=== PATIENT | male | born 1975 | race Caucasian/White ===

== ENCOUNTER → 2018-01-15 | Outpatient (CLI) | payer BC ==
--- NOTE | 2018-01-15 08:03 | US ---
EXAMINATION TYPE: US abdomen complete DATE OF EXAM: 01/15/2018 COMPARISON: NONE CLINICAL HISTORY: R94.5 abnormal liver function. Abdominal pain, nausea, elevated liver enzymes EXAM MEASUREMENTS: Liver Length: 14.2 cm Gallbladder Wall: 0.4 cm CBD: 0.3 cm Spleen: 10.1 cm Right Kidney: 12.2 x 4.5 x 5.2 cm Left Kidney: 13.3 x 5.3 x 5.2 cm technical limitations due to large amount of overlying bowel content Pancreas: Obscured by bowel gas Liver: appears wnl Gallbladder: no evidence of stones, GB wall appears thickened Evidence for sonographic Hernandez's sign: No CBD: limited evaluation Spleen: wnl Right Kidney: no evidence of hydronephrosis Left Kidney: enlarged, no evidence of hydronephrosis Upper IVC: wnl Abd Aorta: visualized portions appear wnl The liver is homogenous. The intrahepatic portion of the IVC and proximal abdominal aorta are within normal limits. There is no evidence of cholelithiasis. Common bile duct is unremarkable. The visu alized portions of the pancreas are homogenous. The spleen is unremarkable. Kidneys are symmetric a nd free of hydronephrosis. No renal lesions are seen. IMPRESSION: Exam is somewhat limited. Gallbladder wall thickening may be due to lack of distention.
== END | disposition home or self-care (01) ==
LOC: RADUSWWP 06:56
PROVIDERS: ATTEND Family Medicine
DX: K82.8 Other specified diseases of gallbladder (principal)
CPT/HCPCS: 76700

== ENCOUNTER 2023-12-21 09:56 | Inpatient (IN) | payer OTHER ==
--- NOTE | 2023-12-21 11:23 | ED ---
General Adult HPI - General Chief complaint: Skin/Abscess/Foreign Body Stated complaint: Sore on bottom Time Seen by Provider: 12/21/23 10:37 Source: patient, RN notes reviewed Mode of arrival: ambulatory Limitations: no limitations - History of Present Illness Initial comments: Patient is a 48-year-old male present to the emergency department with concerns for sore on his bottom. Patient does inject hGH in this area. Patient states over the past several days it has become more painful and swollen. Patient has had similar symptoms previously that have helped with antibiotics. Patient has been on unknown antibiotic for a couple of days at home. Patient also feels thirsty and has some mild abdominal discomfort. - Related Data Home Medications Medication Instructions Recorded Confirmed Albuterol Sulfate [Ventolin HFA] 1 - 2 puff INHALATION RT-Q4H PRN 12/21/23 12/21/23 Escitalopram [Lexapro] 20 mg PO DAILY 12/21/23 12/21/23 Fluticasone Propion/Salmeterol 1 puff INHALATION RT-BID 12/21/23 12/21/23 [Wixela 500-50 Inhub] Multivitamins, Thera [Multivitamin 1 tab PO DAILY 12/21/23 12/21/23 (formulary)] Rosuvastatin [Crestor] 10 mg PO DAILY 12/21/23 12/21/23 Sulfamethox-Tmp 800-160Mg [Bactrim 1 tab PO BID 12/21/23 12/21/23 DS 800-160 mg] Testosterone Cypionate 200 mg IM Q21D 12/21/23 12/21/23 [Depo-Testosterone] lisinopriL [Prinivil] 20 mg PO DAILY 12/21/23 12/21/23 Allergies Allergy/AdvReac Type Severity Reaction Status Date / Time No Known Allergies Allergy Verified 12/21/23 12:59 Review of Systems ROS Statement: Those systems with pertinent positive or pertinent negative responses have been documented in the HPI. ROS Other: All systems not noted in ROS Statement are negative. Constitutional: Denies: fever Eyes: Denies: eye pain ENT: Denies: ear pain Respiratory: Denies: dyspnea Cardiovascular: Denies: chest pain Endocrine: Denies: fatigue Gastrointestinal: Reports: as per HPI. Denies: vomiting Genitourinary: Denies: dysuria Skin: Reports: as per HPI Past Medical History Past Medical History: Hyperlipidemia, Hypertension Past Surgical History: No Surgical Hx Reported Smoking Status: Never smoker Past Alcohol Use History: None Reported Past Drug Use History: None Reported General Exam Limitations: no limitations General appearance: alert, in no apparent distress Head exam: Present: normocephalic Eye exam: Present: normal appearance ENT exam: Present: normal oropharynx, mucous membranes moist Neck exam: Present: normal inspection Respiratory exam: Present: normal lung sounds bilaterally Cardiovascular Exam: Present: regular rate, normal rhythm GI/Abdominal exam: Present: soft, normal bowel sounds. Absent: distended, tenderness, guarding, rebound, rigid, pulsatile mass Extremities exam: Present: normal inspection Back exam: Present: other (Left lateral buttocks with large area of swelling, approximately 10 x 12 cm) Neurological exam: Present: alert Psychiatric exam: Present: normal affect, normal mood Skin exam: Present: normal color Course Vital Signs 12/21/23 10:12 Temperature 98.3 F Pulse Rate 110 H Respiratory 20 Rate Blood Pressure 155/105 O2 Sat by Pulse 96 Oximetry Procedures - Incision & Drainage Consent Obtained: verbal consent Indication: Abscess Site: buttock Size (cm): 12 Anesthetic Used: lidocaine 1% Amount (mLs): 5 I&D Cleaning Method: Betadine Scalpel Used: #11 Ultrasound used: No I&D Drainage Obtained: Other (Unable to obtain pus. No complications) Medical Decision Making - Medical Decision Making Was pt. sent in by a medical professional or institution (Dr. PA, [employer]INO [employer] MANAGER, urgent care, hospital, or long term...) When possible be specific @ -Patient was sent in by his primary care physician Did you speak to anyone other than the patient for history (EMS, parent, family, police, friend...)? What history was obtained from this source @ -No Did you review nursing and triage notes (agree or disagree)? Why? @ -I reviewed and agree with nursing and triage notes Were old charts reviewed (outside hosp., previous admission, EMS record, old EKG, old radiological studies, urgent care reports/EKG's, long term records)? Report findings @ -No old charts were reviewed Differential Diagnosis (chest pain, altered mental status, abdominal pain women, abdominal pain men, vaginal bleeding, weakness, fever, dyspnea, syncope, headache, dizziness, GI bleed, back pain, seizure, CVA, palpatations, mental health, musculoskeletal)? @ -Differential Weakness: Hypoglycemia, shock, sepsis, hyponatremia, anemia, infection, IA, ETOH, adverse medicine reaction, overdose, stroke, this is not meant to be an all-inclusive list. EKG interpreted by me (3pts min.). @ -As above X-rays interpreted by me (1pt min.). @ -None done CT interpreted by me (1pt min.). @ -None done U/S interpreted by me (1pt. min.). @ -None done What testing was considered but not performed or refused? (CT, X-rays, U/S, labs)? Why? @ -None What meds were considered but not given or refused? Why? @ -None Did you discuss the management of the patient with other professionals (professionals i.e. , PA, [employer]INO CAGE MANAGER, lab, RT, psych nurse, social service director, buffer operator, teacher, protocol officer, case advocate)? Give summary @ -Case discussed with Dr. Valdes who will admit covering Dr. Buckley Was smoking cessation discussed for >3mins.? @ -No Was critical care preformed (if so, how long)? @ -31 minutes critical care time Were there social determinants of health that impacted care today? How? (Homelessness, low income, unemployed, alcoholism, drug addiction, transportation, low edu. Level, literacy, decrease access to med. care, prison, rehab)? @ -No Was there de-escalation of care discussed even if they declined (Discuss DNR or withdrawal of care, Hospice)? DNR status @ -No What co-morbidities impacted this encounter? (DM, HTN, Smoking, COPD, CAD, Cancer, CVA, ARF, Chemo, Hep., AIDS, mental health diagnosis, sleep apnea, morbid obesity)? @ -None Was patient admitted / discharged? Hospital course, mention meds given and route, prescriptions, significant lab abnormalities, going to OR and other pertinent info. @ -Patient reevaluated. Patient will be admitted. 3 L of fluid provided. Th ere is concern of possible sepsis diagnosed at 1235. Blood culture and lactic acid and IV antibiotics all ordered. Patient will be admitted. Patient will have repeat labs. Admission orders written. Undiagnosed new problem with uncertain prognosis? @ -No Drug Therapy requiring intensive monitoring for toxicity (Heparin, Nitro, Insulin, Cardizem)? @ -No Were any procedures done? @ -See above Diagnosis/symptom? @ -Buttocks abscess, sepsis, new onset diabetes, hyponatremia, hyperkalemia, renal insufficiency Acute, or Chronic, or Acute on Chronic? @ -Acute, acute, acute, acute, acute, acute, acute Uncomplicated (without systemic symptoms) or Complicated (systemic symptoms)? @ -Default Side effects of treatment? @ -No Exacerbation, Progression, or Severe Exacerbation? @ -No Poses a threat to life or bodily function? How? (Chest pain, USA, IA, pneumonia, PE, COPD, DKA, ARF, appy, cholecystitis, CVA, Diverticulitis, Homicidal, Suicidal, threat to staff... and all critical care pts) @ -Threat for acidemia - Lab Data Result diagrams: 12/21/23 11:29 12/21/23 11:29 Lab Results 12/21/23 12/21/23 12/21/23 Range/Units 11:29 11:29 11:29 WBC 25.7 H (3.8-10.6) k/uL RBC 4.80 (4.30-5.90) m/uL Hgb 14.8 (13.0-17.5) gm/dL Hct 46.8 (39.0-53.0) % MCV 97.6 (80.0-100.0) fL MCH 31.0 (25.0-35.0) pg MCHC 31.7 (31.0-37.0) g/dL RDW 13.5 (11.5-15.5) % Plt Count 434 (150-450) k/uL MPV 8.8 Neutrophils % 90 % Lymphocytes % 4 % Monocytes % 4 % Eosinophils % 1 % Basophils % 0 % Neutrophils # 23.1 H (1.3-7.7) k/uL Lymphocytes # 1.1 (1.0-4.8) k/uL Monocytes # 1.1 H (0-1.0) k/uL Eosinophils # 0.2 (0-0.7) k/uL Basophils # 0.1 (0-0.2) k/uL Sodium 126 L (137-145) mmol/L Potassium 6.3 H* (3.5-5.1) mmol/L Chloride 89 L (98-107) mmol/L Carbon Dioxide 28 (22-30) mmol/L Anion Gap 9 mmol/L BUN 26 H (9-20) mg/dL Creatinine 1.56 H (0.66-1.25) mg/dL Est GFR (CKD-EPI)AfAm 61 (>60 ml/min/1.73 sqM) Est GFR (CKD-EPI)NonAf 53 (>60 ml/min/1.73 sqM) Glucose 458 H (74-99) mg/dL Plasma Lactic Acid David 3.1 H* (0.7-2.0) mmol/L Calcium 11.3 H (8.4-10.2) mg/dL Total Bilirubin 0.4 (0.2-1.3) mg/dL AST 35 (17-59) U/L ALT 43 (4-49) U/L Alkaline Phosphatase 84 (38-126) U/L Total Protein 6.7 (6.3-8.2) g/dL Albumin 4.1 (3.5-5.0) g/dL Disposition Clinical Impression: Abscess, Diabetes mellitus, new onset Disposition: ADMITTED IP TO THIS [facility] Condition: Serious Is patient prescribed a controlled substance at d/c from ED?: No Time of Disposition: 12:49
[2023-12-21] MEDS: FAMOTIDINE 20 MG/2 ML VIAL IV STA (11:41)
[2023-12-21] MEDS: SODIUM CHLORIDE 0.9% 2,000 ML IV ONE (11:46)
[2023-12-21] MEDS: SODIUM CHLORIDE 0.9% 500 ML 500 ML IV SCH (11:51)
[2023-12-21 11:53] LABS: Basophils # (A) 0.1 k/uL (0-0.2); Basophils % (A) 0 %; Eosinophils # (A) 0.2 k/uL (0-0.7); Eosinophils % (A) 1 %; HCT 46.8 % (39.0-53.0); HGB 14.8 gm/dL (13.0-17.5); Lymphocytes # (A) 1.1 k/uL (1.0-4.8); Lymphocytes % (A) 4 %; MCHC 31.7 g/dL (31.0-37.0); MCV 97.6 fL (80.0-100.0); Mean Platelet Volume 8.8; Monocytes # (A) 1.1 k/uL (0-1.0); Monocytes % (A) 4 %; Neutrophils # (A) 23.1 k/uL (1.3-7.7); Neutrophils % (A) 90 %; Platelet Count 434 k/uL (150-450); RDW 13.5 % (11.5-15.5); WBC 25.7 k/uL (3.8-10.6)
[2023-12-21 12:06] LABS: ALT 43 U/L (4-49); AST 35 U/L (17-59); African American GFR (CKD) 61 (>60 ml/min/1.73 sqM); Albumin 4.1 g/dL (3.5-5.0); Alkaline Phosphatase 84 U/L (38-126); Anion Gap 9 mmol/L; Blood Urea Nitrogen 26 mg/dL (9-20); Calcium 11.3 mg/dL (8.4-10.2); Carbon Dioxide 28 mmol/L (22-30); Chloride 89 mmol/L (98-107); Glucose 458 mg/dL (74-99); Non-African American GFR(CKD) 53 (>60 ml/min/1.73 sqM); Sodium 126 mmol/L (137-145); Total Bilirubin 0.4 mg/dL (0.2-1.3); Total Protein 6.7 g/dL (6.3-8.2)
[2023-12-21 12:12] LABS: Potassium 6.3 mmol/L (3.5-5.1)
[2023-12-21] MEDS ORDERED: NALOXONE 0.4 MG/ML 1 ML VIAL IV PRN (12:50)
[2023-12-21] MEDS: SODIUM CHLORIDE 0.9% 1,000 ML IV STA (12:56)
[2023-12-21] MEDS: LIDOCAINE 1% INJ 10MG/ML (20 ML MDV) SQ ONE (13:40)
[2023-12-21] MEDS: CLINDAMYCIN 600 MG in DEXTROSE 5% IN WATER 50 ML IVPB ONE (14:14)
[2023-12-21] MEDS: SODIUM CHLORIDE 0.9% 1,000 ML IV SCH (14:14)
[2023-12-21 14:47] LABS: African American GFR (CKD) 74 (>60 ml/min/1.73 sqM); Anion Gap 6 mmol/L; Blood Urea Nitrogen 23 mg/dL (9-20); Carbon Dioxide 27 mmol/L (22-30); Chloride 97 mmol/L (98-107); Glucose 323 mg/dL (74-99); Non-African American GFR(CKD) 64 (>60 ml/min/1.73 sqM); Potassium 5.8 mmol/L (3.5-5.1); Sodium 130 mmol/L (137-145)
[2023-12-21] MEDS: HYDROmorphone 0.5 MG/0.5 ML SYRINGE IVP PRN (15:21)
--- NOTE | 2023-12-21 15:42 | US ---
EXAMINATION TYPE: US extremity nonvasc mass LT DATE OF EXAM: 12/21/2023 COMPARISON: NONE CLINICAL INDICATION: Male, 48 years old with history of Gluteal abscess L; Abscess left gluteal gave himself a HCG shot on Saturday. TECHNIQUE: FINDINGS: Complex area seen approximately 6.1 cm. IMPRESSION: Complex mass likely reflects hematoma. No evidence for drainable collection at this time .
[2023-12-21 17:18] LABS: Glucose,Whole Blood 280 mg/dL (70-110)
[2023-12-21] MEDS ORDERED: DEXTROSE 50% SYRINGE 50 ML IVP PRN ×2 (17:36)
[2023-12-21] MEDS: IBUPROFEN 400 MG TAB PO PRN (18:00)
[2023-12-21] MEDS: INSULIN ASPART (NovoLOG) 100 UNIT/ML VIAL SQ SCH (18:01)
[2023-12-21] MEDS: SODIUM ZIRCONIUM CYCLOSILICATE 10 GM PACKET PO ONE (18:38)
[2023-12-21 20:35] LABS: Glucose,Whole Blood 334 mg/dL (70-110)
[2023-12-21] MEDS: ACETAMINOPHEN TAB 325 MG TAB PO PRN (20:49)
[2023-12-21] MEDS: CLINDAMYCIN 600 MG in DEXTROSE 5% IN WATER 50 ML IVPB SCH (20:51)
[2023-12-21] MEDS: INSULIN DETEMIR (LEVEMIR) 100 UNIT/ML SYR SQ SCH (20:52)
[2023-12-21] MEDS: INSULIN ASPART (NovoLOG) 100 UNIT/ML VIAL SQ ONE (20:52)
[2023-12-21] MEDS: SYMBICORT 160-4.5 MCG INHALER INHALATION SCH (21:27)
--- NOTE | 2023-12-21 22:42 | P.CON ---
Consult Note - . Consult date: 12/21/23 Assessment/Plan:: Patient is a 48-year-old male present to the emergency department with concerns for sore on his bottom. Patient does inject hGH in this area. Patient states over the past several days it has become more painful and swollen. Patient has had similar symptoms previously that have helped with antibiotics. Patient has been on unknown antibiotic for a couple of days at home. Patient also feels thirsty and has some mild abdominal discomfort. Review of Systems ROS Statement: Those systems with pertinent positive or pertinent negative responses have been documented in the HPI. ROS Other: All systems not noted in ROS Statement are negative. Constitutional: Denies: fever Eyes: Denies: eye pain ENT: Denies: ear pain Respiratory: Denies: dyspnea Cardiovascular: Denies: chest pain Endocrine: Denies: fatigue Gastrointestinal: Reports: as per HPI. Denies: vomiting Genitourinary: Denies: dysuria Skin: Reports: as per HPI Past Medical History Past Medical History: Hyperlipidemia, Hypertension Past Surgical History: No Surgical Hx Reported Smoking Status: Never smoker Past Alcohol Use History: None Reported Past Drug Use History: None Reported General Exam Limitations: no limitations General appearance: alert, in no apparent distress Head exam: Present: normocephalic Eye exam: Present: normal appearance ENT exam: Present: normal oropharynx, mucous membranes moist Neck exam: Present: normal inspection Respiratory exam: Present: normal lung sounds bilaterally Cardiovascular Exam: Present: regular rate, normal rhythm GI/Abdominal exam: Present: soft, normal bowel sounds. Absent: distended, tenderness, guarding, rebound, rigid, pulsatile mass Extremities exam: Present: normal inspection Back exam: Present: other (Left lateral buttocks with large area of swelling, approximately 10 x 12 cm) Neurological exam: Present: alert Psychiatric exam: Present: normal affect, normal mood Skin exam: Present: normal color 48 yo male w/ left lateral buttocks abscess -discussed w/ ED, ED physician will I&D -IV abx -recommend UA to assess for ketones -trend LA -aggressive IV hydration -glucose control Reassess in am
[2023-12-22 06:10] LABS: Glucose,Whole Blood 290 mg/dL (70-110)
[2023-12-22 06:35] LABS: Basophils # (A) 0.1 k/uL (0-0.2); Basophils % (A) 0 %; Eosinophils # (A) 0.1 k/uL (0-0.7); Eosinophils % (A) 0 %; HCT 43.7 % (39.0-53.0); Lymphocytes # (A) 1.2 k/uL (1.0-4.8); Lymphocytes % (A) 6 %; MCH 31.4 pg (25.0-35.0); MCHC 32.1 g/dL (31.0-37.0); Monocytes # (A) 1.1 k/uL (0-1.0); Monocytes % (A) 6 %; Neutrophils # (A) 17.3 k/uL (1.3-7.7); Neutrophils % (A) 87 %; Platelet Count 410 k/uL (150-450); RBC 4.46 m/uL (4.30-5.90); RDW 14.2 % (11.5-15.5); WBC 19.9 k/uL (3.8-10.6)
[2023-12-22 06:58] LABS: ALT 41 U/L (4-49); AST 34 U/L (17-59); African American GFR (CKD) 68 (>60 ml/min/1.73 sqM); Albumin 3.6 g/dL (3.5-5.0); Alkaline Phosphatase 65 U/L (38-126); Anion Gap 8 mmol/L; Blood Urea Nitrogen 25 mg/dL (9-20); Calcium 9.6 mg/dL (8.4-10.2); Carbon Dioxide 27 mmol/L (22-30); Chloride 92 mmol/L (98-107); Glucose 327 mg/dL (74-99); Non-African American GFR(CKD) 59 (>60 ml/min/1.73 sqM); Sodium 127 mmol/L (137-145); Total Bilirubin 0.7 mg/dL (0.2-1.3); Total Protein 6.1 g/dL (6.3-8.2)
[2023-12-22 07:00] LABS: Potassium 6.1 mmol/L (3.5-5.1)
[2023-12-22] MEDS: DEXTROSE 50% SYRINGE 50 ML IVP STA (08:45)
[2023-12-22] MEDS: INSULIN REGULAR 100 UNIT/ML VIAL (IV) IV ONE (08:45)
[2023-12-22] MEDS: CALCIUM GLUCONATE IN NACL 1 GM in SALINE 1 100ML.BAG IVPB ONE (08:45)
[2023-12-22] MEDS: MULTIVITAMINS, THERA 1 EACH TAB PO SCH (09:00)
[2023-12-22] MEDS: ESCITALOPRAM 20 MG TAB PO SCH (09:00)
[2023-12-22] MEDS: lisinopriL 20 MG TAB PO SCH (09:00)
[2023-12-22] MEDS: ATORVASTATIN 20 MG TAB PO SCH (09:00)
[2023-12-22] MEDS: HYDROmorphone 1 MG/ML 1 ML SYRINGE IVP PRN (09:00)
[2023-12-22] MEDS ORDERED: DEXTROSE 50% SYRINGE 50 ML IVP STA (09:50)
[2023-12-22] MEDS ORDERED: INSULIN REGULAR 100 UNIT/ML VIAL (IV) IV ONE (09:50)
[2023-12-22] MEDS: SODIUM ZIRCONIUM CYCLOSILICATE 10 GM PACKET PO SCH (10:29)
[2023-12-22] MEDS: SODIUM BICARB 8.4% 50 ML SYR (1 MEQ/ML) IV STA (10:29)
[2023-12-22] MEDS ORDERED: CALCIUM GLUCONATE IN NACL 1 GM in SALINE 1 100ML.BAG IVPB ONE (10:30)
[2023-12-22 11:36] LABS: Glucose,Whole Blood 292 mg/dL (70-110)
--- NOTE | 2023-12-22 12:01 | US ---
EXAMINATION TYPE: US kidneys/renal and bladder DATE OF EXAM: 12/22/2023 COMPARISON: NONE CLINICAL INDICATION: Male, 48 years old with history of lcare; clare EXAM MEASUREMENTS: Right Kidney: 12.5 x 4.7 x 5.5 cm Left Kidney: 11.3 x 6.1 x 4.8 cm Right Kidney: No hydronephrosis or masses seen Left Kidney: Anechoic area seen mid pole 1.2 x 1.9 x 1.2 cm Bladder: Anechoic Bilateral Jets seen: Yes There is no evidence for hydronephrosis at this point in time. No nephrolithiasis is seen. No anaya s are identified. The urinary bladder is anechoic. Bilateral ureteral jets are seen. IMPRESSION: 1. 2 cm left renal cyst. 2. No renal calcifications or hydronephrosis.
--- NOTE | 2023-12-22 12:13 | P.HPIM ---
History of Present Illness This is a pleasant 48 years old male with past medical history of hypertension, hyperlipidemia Presents because of left buttock pain for about 2 to 3 days duration Patient Use testosterone injection to replace his low level and it looks like he developed pain and swelling in the area of his left hip with small opening and discharge He had ultrasound showing complex cyst of 6.1 cm However there is no leg pain or swelling or tenderness. Walking is fine Patient has been feeling a lot of thirst lately and peeing a lot. Patient has been told before he is prediabetic but is not taking any diabetes medication He is complaining from some headache but is okay now His increased frequency of urination but no burning No chest pain dyspnea or coughing No abdominal pain vomiting or diarrhea No dizziness weakness or numbness He denies smoking alcohol or illicit drugs Review of Systems Review of systems CONSTITUTIONAL: No fever, no malaise, no fatigue. HEENT: No recent visual problems or hearing problems. Denied any sore throat. CARDIOVASCULAR: No orthopnea, PND, no palpitations, no syncope. PULMONARY: No shortness of breath, no cough, no hemoptysis. GASTROINTESTINAL: No diarrhea, no nausea, no vomiting, no abdominal pain. Normoactive bowel sounds. NEUROLOGICAL: No headaches, no weakness, no numbness. HEMATOLOGICAL: Denies any bleeding or petechiae. GENITOURINARY: Denies any burning micturition, frequency, or urgency. MUSCULOSKELETAL/RHEUMATOLOGICAL: Denies any joint pain, swelling, or any muscle pain. -ENDOCRINE: Complains from polyuria or polydipsia. Past Medical History Past Medical History: Hyperlipidemia, Hypertension History of Any Multi-Drug Resistant Organisms: None Reported Past Surgical History: No Surgical Hx Reported Additional Past Anesthesia/Blood Transfusion Reaction / Comment(s): Patient has never received a blood transfusion or anesthesia. Past Psychological History: Anxiety Smoking Status: Never smoker Past Alcohol Use History: None Reported Past Drug Use History: None Reported - Past Family History Father Family Medical History: No Reported History Additional Family Medical History / Comment(s): Grandfather had a heart transplant. Mother Family Medical History: No Reported History Medications and Allergies Home Medications Medication Instructions Recorded Confirmed Type Albuterol Sulfate [Ventolin HFA] 1 - 2 puff INHALATION RT-Q4H PRN 12/21/23 12/21/23 History Escitalopram [Lexapro] 20 mg PO DAILY 12/21/23 12/21/23 History Fluticasone Propion/Salmeterol 1 puff INHALATION RT-BID 12/21/23 12/21/23 History [Wixela 500-50 Inhub] Multivitamins, Thera [Multivitamin 1 tab PO DAILY 12/21/23 12/21/23 History (formulary)] Rosuvastatin [Crestor] 10 mg PO DAILY 12/21/23 12/21/23 History Sulfamethox-Tmp 800-160Mg [Bactrim 1 tab PO BID 12/21/23 12/21/23 History DS 800-160 mg] Testosterone Cypionate 200 mg IM Q21D 12/21/23 12/21/23 History [Depo-Testosterone] lisinopriL [Prinivil] 20 mg PO DAILY 12/21/23 12/21/23 History Allergies Allergy/AdvReac Type Severity Reaction Status Date / Time No Known Allergies Allergy Verified 12/21/23 12:59 Physical Exam Vitals: Vital Signs Temp Pulse Pulse Resp BP BP Pulse Ox 12/22/23 03:10 97 16 119/63 98 12/21/23 23:10 103 H 16 134/60 97 12/21/23 20:45 98.3 F 105 H 16 165/93 96 12/21/23 18:44 111 H 12/21/23 18:15 98.1 F 111 H 16 171/92 96 12/21/23 17:55 96 18 163/97 97 12/21/23 10:12 98.3 F 110 H 20 155/105 96 Intake and Output 12/21/23 12/22/23 12/22/23 22:59 06:59 14:59 Intake Total 360 Balance 360 Intake: Oral 360 Other: Voiding Method Toilet Toilet Urinal Urinal Weight 92.986 kg 93 kg GENERAL: The patient is alert and oriented x3, not in any acute distress. Well developed, well nourished. HEENT: Pupils are round and equally reacting to light. EOMI. No scleral icterus. No conjunctival pallor. Normocephalic, atraumatic. No pharyngeal erythema. No thyromegaly. CARDIOVASCULAR: S1 and S2 present. No murmurs, rubs, or gallops. PULMONARY: Chest is clear to auscultation, no wheezing , no crackles. ABDOMEN: Soft, nontender, nondistended, normoactive bowel sounds. No palpable organomegaly. MUSCULOSKELETAL: No joint swelling or deformity. EXTREMITIES: No cyanosis, clubbing, or pedal edema. NEUROLOGICAL: Gross neurological examination did not reveal any focal deficits. SKIN: No rashes. no petechiae. Results CBC & Chem 7: 12/22/23 06:05 12/22/23 06:05 Labs: Abnormal Lab Results - Last 24 Hours (Table) 12/21/23 12/21/23 12/21/23 Range/Units 11:29 11:29 11:29 WBC 25.7 H (3.8-10.6) k/uL Neutrophils # 23.1 H (1.3-7.7) k/uL Monocytes # 1.1 H (0-1.0) k/uL Sodium 126 L (137-145) mmol/L Potassium 6.3 H* (3.5-5.1) mmol/L Chloride 89 L (98-107) mmol/L BUN 26 H (9-20) mg/dL Creatinine 1.56 H (0.66-1.25) mg/dL Glucose 458 H (74-99) mg/dL POC Glucose (mg/dL) (70-110) mg/dL Hemoglobin A1c (<=6.0) % Plasma Lactic Acid David 3.1 H* (0.7-2.0) mmol/L Calcium 11.3 H (8.4-10.2) mg/dL Total Protein (6.3-8.2) g/dL 12/21/23 12/21/23 12/21/23 Range/Units 11:29 13:07 17:16 WBC (3.8-10.6) k/uL Neutrophils # (1.3-7.7) k/uL Monocytes # (0-1.0) k/uL Sodium 130 L (137-145) mmol/L Potassium 5.8 H (3.5-5.1) mmol/L Chloride 97 L (98-107) mmol/L BUN 23 H (9-20) mg/dL Creatinine 1.33 H (0.66-1.25) mg/dL Glucose 323 H (74-99) mg/dL POC Glucose (mg/dL) 280 H (70-110) mg/dL Hemoglobin A1c 7.6 H (<=6.0) % Plasma Lactic Acid David (0.7-2.0) mmol/L Calcium (8.4-10.2) mg/dL Total Protein (6.3-8.2) g/dL 12/21/23 12/22/23 12/22/23 Range/Units 20:33 06:05 06:05 WBC 19.9 H (3.8-10.6) k/uL Neutrophils # 17.3 H (1.3-7.7) k/uL Monocytes # 1.1 H (0-1.0) k/uL Sodium 127 L (137-145) mmol/L Potassium 6.1 H* (3.5-5.1) mmol/L Chloride 92 L (98-107) mmol/L BUN 25 H (9-20) mg/dL Creatinine 1.42 H (0.66-1.25) mg/dL Glucose 327 H (74-99) mg/dL POC Glucose (mg/dL) 334 H (70-110) mg/dL Hemoglobin A1c (<=6.0) % Plasma Lactic Acid David (0.7-2.0) mmol/L Calcium (8.4-10.2) mg/dL Total Protein 6.1 L (6.3-8.2) g/dL 12/22/23 Range/Units 06:09 WBC (3.8-10.6) k/uL Neutrophils # (1.3-7.7) k/uL Monocytes # (0-1.0) k/uL Sodium (137-145) mmol/L Potassium (3.5-5.1) mmol/L Chloride (98-107) mmol/L BUN (9-20) mg/dL Creatinine (0.66-1.25) mg/dL Glucose (74-99) mg/dL POC Glucose (mg/dL) 290 H (70-110) mg/dL Hemoglobin A1c (<=6.0) % Plasma Lactic Acid David (0.7-2.0) mmol/L Calcium (8.4-10.2) mg/dL Total Protein (6.3-8.2) g/dL Thrombosis Risk Factor Assmnt - Choose All That Apply Any of the Below Risk Factors Present?: Yes Each Factor Represents 1 point: Age 41-60 years, Obesity (BMI >25) Other Risk Factors: No Other congenital or acquired thrombophilia - If yes, enter type in comment: No Thrombosis Risk Factor Assessment Total Risk Factor Score: 2 Thrombosis Risk Factor Assessment Level: Low Risk Assessment and Plan Assessment: Acute left buttock abscess With complex cyst 6.1 cm associated with cellulitis Polyuria and polydipsia could be secondary to infection, rule out diabetes mellitus Acute kidney injury with hyperkalemia Hypovolemic hyponatremia Hypertension Hyperlipidemia new onset diabetes with hemoglobin A1c 7.6 on 12/21/2023 Plan: Continue with antibiotic clindamycin Continue with normal saline at 75 mL/h and follow-up creatinine and potassium Give hyperkalemia cocktail like dextrose 50%/insulin 10 units, bicarb, kelme Infectious disease and general surgery consult Nephrology consult Continue with insulin Levemir 15 units daily and NovoLog 5 units with meals plus insulin sliding scale Nutritional consult Labs and medication were reviewed.. Continue same treatment. Continue with symptomatic treatment. Resume home medication. Monitor labs and vitals. DVT and GI prophylaxis. Further recommendations as per clinical course of the patient DVT prophylaxis: Subcutaneous heparin GI Prophylaxis: Pepcid PT/OT: Pending Prognosis is guarded
[2023-12-22] MEDS: INSULIN ASPART (NovoLOG) 100 UNIT/ML VIAL SQ SCH (12:36)
--- NOTE | 2023-12-22 12:55 | P.NPCON ---
History of Present Illness - Reason for Consult acute renal failure - History of Present Illness Patient is a 48-year-old male with history of hypertension and hyperlipidemia. Patient is admitted to the hospital with complaints of pain and swelling in the left hip area associated with discharge. Patient has had testosterone injections in that area. Patient is also complaining of increased thirst sensation and excessive urine production. He states that he has been diagnosed with prediabetes but has not taken any medications. 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 Potassium was noted to be 6.3, sodium 126 and serum blood sugar has been 280 and 334. Serum creatinine was 1.5. Patient is maintained on lisinopril for hypertension and was also recently started on Bactrim for the left buttock abscess. Also receiving Motrin currently. No significant urinary symptoms.. Currently maintained on normal saline. Serum creatinine has decreased to 1.4. Serum sodium is 127 today and potassium remains elevated at 6.1. BP has been high. Review of Systems as per HPI Past Medical History Past Medical History: Hyperlipidemia, Hypertension History of Any Multi-Drug Resistant Organisms: None Reported Past Surgical History: No Surgical Hx Reported Additional Past Anesthesia/Blood Transfusion Reaction / Comment(s): Patient has never received a blood transfusion or anesthesia. Past Psychological History: Anxiety Smoking Status: Never smoker Past Alcohol Use History: None Reported Past Drug Use History: None Reported - Past Family History Father Family Medical History: No Reported History Additional Family Medical History / Comment(s): Grandfather had a heart transplant. Mother Family Medical History: No Reported History Medications and Allergies Home Medications Medication Instructions Recorded Confirmed Type Albuterol Sulfate [Ventolin HFA] 1 - 2 puff INHALATION RT-Q4H PRN 12/21/23 12/21/23 History Escitalopram [Lexapro] 20 mg PO DAILY 12/21/23 12/21/23 History Fluticasone Propion/Salmeterol 1 puff INHALATION RT-BID 12/21/23 12/21/23 History [Wixela 500-50 Inhub] Multivitamins, Thera [Multivitamin 1 tab PO DAILY 12/21/23 12/21/23 History (formulary)] Rosuvastatin [Crestor] 10 mg PO DAILY 12/21/23 12/21/23 History Sulfamethox-Tmp 800-160Mg [Bactrim 1 tab PO BID 12/21/23 12/21/23 History DS 800-160 mg] Testosterone Cypionate 200 mg IM Q21D 12/21/23 12/21/23 History [Depo-Testosterone] lisinopriL [Prinivil] 20 mg PO DAILY 12/21/23 12/21/23 History Allergies Allergy/AdvReac Type Severity Reaction Status Date / Time No Known Allergies Allergy Verified 12/21/23 12:59 Physical Exam Vitals: Vital Signs Temp Pulse Pulse Resp BP BP Pulse Ox 12/22/23 11:28 96 16 165/90 95 12/22/23 08:41 98.4 F 101 H 16 168/68 97 12/22/23 03:10 97 16 119/63 98 12/21/23 23:10 103 H 16 134/60 97 12/21/23 20:45 98.3 F 105 H 16 165/93 96 12/21/23 18:44 111 H 12/21/23 18:15 98.1 F 111 H 16 171/92 96 12/21/23 17:55 96 18 163/97 97 Intake and Output 12/21/23 12/22/23 12/22/23 22:59 06:59 14:59 Intake Total 360 Balance 360 Intake: Oral 360 Other: Voiding Method Toilet Toilet Toilet Urinal Urinal Urinal Weight 92.986 kg 93 kg patient is awake, alert oriented 3 No acute distress Examination of the heart S1 and S2 Examination of the lungs bilateral breath sounds are heard Abdomen is soft nontender Examination of lower extremities shows no significant edema RESIDENT CARE SPEC exam grossly intact Results - Lab Results Most recent lab results Calcium 9.6 mg/dL (8.4-10.2) 12/22/23 06:05 12/22/23 06:05 12/22/23 06:05 Assessment and Plan Assessment: 1. Acute kidney injury, mostly prerenal and improving with IV hydration. Serum creatinine may also be falsely elevated from use of Bactrim. NSAIDs will be discontinued. UA has been ordered and ultrasound of the kidneys is unremarkable for obstructive uropathy. 2. Hyperkalemia associated with acute kidney injury, NSAIDs, hyperglycemia and use of Bactrim. 3. Hyponatremia, patient appears hypovolemic. Continue with normal saline. urine sodium and urine osmolality will be ordered as well. 4. Hypertension, uncontrolled, maintained on lisinopril at home. Most likely exacerbated with use of NSAIDs. Lisinopril will be held for now and I will add Coreg. 5. Left buttock abscess maintained on clindamycin 6. Polyuria and polydipsia secondary to diabetes, new onset Plan: DC Motrin Hold lisinopril Continue with normal saline Control blood sugars which is contributing to the hyperkalemia. Agree with ayad. Check urine osmolality and random urine sodium Add amlodipine for hypertension. continue off of Bactrim Thank you for the consultation. We will continue to follow the patient with you during his hospitalization.
--- NOTE | 2023-12-22 15:20 | P.PN ---
Subjective Progress Note Date: 12/22/23 CHIEF COMPLAINT: Left buttock abscess HISTORY OF PRESENT ILLNESS: The patient is a 48-year-old male presents with 1 week history of swelling along the left buttock after hormone replacement shot. 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 He reports generally not feeling well in the past week. He also reports being told he was borderline diabetic. He had initially lost 30 pounds in 1 month and started to eat poor food choices. He reports eating over 150 g of protein daily. Patient reports he had been on antibiotics prior to admission. ROS: No reports of nausea and vomiting. No bowel movements. No fevers or chills. No new chest pain. No productive sputum PHYSICAL EXAM: VITAL SIGNS: Reviewed CONSTITUTIONAL: Well developed and in no acute distress. EYES: Conjuctivae without sclera icterus. Extraocular movements grossly intact. HEAD, EARS, NOSE, THROAT: Moist buccal mucosa. Head is atraumatic, normocephalic. Hears conversational speech. No nasal drainage. RESPIRATORY: Non-labored respirations and equal bilateral excursions. CARDIOVASCULAR: Palpable 2+ radial pulses. ABDOMEN: Nontender. MUSCULOSKELETAL: Swelling along the left buttock with dressing intact. SKIN: Good skin turgor. Well perfused. NEUROLOGIC: Cranial nerves II through XII grossly intact. No focal or lateralizing signs. PSYCH: Appropriate affect. Alert and oriented to person, place and time. CLINICAL LABS: Reviewed. WBC over 19,000 down from 25,000. Hemoglobin A1c 7.6%. Creatinine elevated 1.56. Blood sugar glucose 327 STUDIES: Ultrasound left buttock demonstrates over 6 cm abscess ASSESSMENT: 1. Left buttock abscess with cellulitis 2. Sepsis due to cellulitis and abscess 3. Newly diagnosed diabetes type 2, uncontrolled with hyperglycemia PLAN: 1. Despite attempted drainage at bedside, patient reports no drainage from the left buttock abscess. Will need formal surgical drainage. 2. Infectious disease management due to complicated left buttock abscess with sepsis 3. Recommend tight glycemic control. 4. Patient has acute kidney injury where high-protein diet may be contraindicated at this time of 120 to 150 g daily Objective - Vital Signs Vital signs: Vital Signs Temp 98.4 F 12/22/23 08:41 Pulse 96 12/22/23 13:06 Resp 16 12/22/23 11:28 BP 165/90 12/22/23 11:28 Pulse Ox 95 12/22/23 11:28 FiO2 Intake & Output 12/21/23 12/22/23 12/22/23 18:59 06:59 18:59 Intake Total 1020 Balance 1020 Weight 92.986 kg 93 kg Intake: Oral 1020 Other: Voiding Method Toilet Toilet Toilet Urinal Urinal Urinal # Voids 3 - Labs CBC & Chem 7: 12/22/23 06:05 12/22/23 13:30 Labs: Abnormal Lab Results - Last 24 Hours (Table) 12/21/23 12/21/23 12/21/23 Range/Units 11:29 17:16 20:33 WBC (3.8-10.6) k/uL Neutrophils # (1.3-7.7) k/uL Monocytes # (0-1.0) k/uL Sodium (137-145) mmol/L Potassium (3.5-5.1) mmol/L Chloride (98-107) mmol/L BUN (9-20) mg/dL Creatinine (0.66-1.25) mg/dL Glucose (74-99) mg/dL POC Glucose (mg/dL) 280 H 334 H (70-110) mg/dL Hemoglobin A1c 7.6 H (<=6.0) % Total Protein (6.3-8.2) g/dL 12/22/23 12/22/23 12/22/23 Range/Units 06:05 06:05 06:09 WBC 19.9 H (3.8-10.6) k/uL Neutrophils # 17.3 H (1.3-7.7) k/uL Monocytes # 1.1 H (0-1.0) k/uL Sodium 127 L (137-145) mmol/L Potassium 6.1 H* (3.5-5.1) mmol/L Chloride 92 L (98-107) mmol/L BUN 25 H (9-20) mg/dL Creatinine 1.42 H (0.66-1.25) mg/dL Glucose 327 H (74-99) mg/dL POC Glucose (mg/dL) 290 H (70-110) mg/dL Hemoglobin A1c (<=6.0) % Total Protein 6.1 L (6.3-8.2) g/dL 12/22/23 12/22/23 Range/Units 11:33 13:30 WBC (3.8-10.6) k/uL Neutrophils # (1.3-7.7) k/uL Monocytes # (0-1.0) k/uL Sodium (137-145) mmol/L Potassium 5.7 H (3.5-5.1) mmol/L Chloride (98-107) mmol/L BUN (9-20) mg/dL Creatinine (0.66-1.25) mg/dL Glucose (74-99) mg/dL POC Glucose (mg/dL) 292 H (70-110) mg/dL Hemoglobin A1c (<=6.0) % Total Protein (6.3-8.2) g/dL
[2023-12-22] MEDS ORDERED: VANCOMYCIN IV PER PHARMACY 1 EACH MISC MISCELLANE PRN (15:29)
[2023-12-22] MEDS: VANCOMYCIN 1,500 MG in SODIUM CHLORIDE 0.9% 500 ML 500 ML IVPB SCH (15:53)
[2023-12-22 16:54] LABS: Glucose,Whole Blood 358 mg/dL (70-110)
[2023-12-22] MEDS: KETOROLAC 15 MG/ML 1 ML VIAL IVP STA (17:23)
[2023-12-22] MEDS: AMPICILLIN-SULBACTAM 3 GM in SODIUM CHLORIDE 0.9% 100 ML IVPB SCH (18:57)
[2023-12-22 19:55] LABS: Glucose,Whole Blood 414 mg/dL (70-110)
[2023-12-22] MEDS: FAMOTIDINE 20 MG/2 ML VIAL IV SCH (20:57)
[2023-12-22] MEDS ORDERED: FAMOTIDINE 20 MG/2 ML VIAL ONE (20:57)
--- NOTE | 2023-12-22 21:52 | P.CONS ---
History of Present Illness - Reason for Consult Consult date: 12/22/23 Buttock abscess Requesting physician: Jonas E Sheet - Chief Complaint Left gluteal area pain and swelling x few days - History of Present Illness Patient is a 48-year-old male with a past medical history significant for hypertension hyperlipidemia patient presenting to the hospital concerning for left gluteal area pain apparently the patient has injected hGH in the left gluteal area last Saturday about 4 to 5 days before presentation to the hospital patient subsequent noticed to having the left gluteal area becoming more swollen and painful patient was described the pain to be moderate intensity about 8 out of 10 and describing to be throbbing without any radiation patient was given antibiotic in outpatient setting he is not sure about the name and subsequently noticed to having no significant improvement for the patient present to the hospital on arrival to the ER patient was afebrile and no fever have been recorded subsequently patient was tachycardic but not hypotensive or hypoxic patient did have white count 19.9. Creatinine has been mildly elevated liver isms are normal patient was to started on clindamycin admitted to hospital infectious disease was consulted for further management apparently the patient did have a I&D of the area by the ER physician unfortunately no culture was done Review of Systems Positive point and negatives has been mentioned in the HPI, complete review of systems was performed and all other systems are negative Past Medical History Past Medical History: Hyperlipidemia, Hypertension History of Any Multi-Drug Resistant Organisms: None Reported Past Surgical History: No Surgical Hx Reported Additional Past Anesthesia/Blood Transfusion Reaction / Comm: Patient has never received a blood transfusion or anesthesia. Past Psychological History: Anxiety Smoking Status: Never smoker Past Alcohol Use History: None Reported Past Drug Use History: None Reported - Past Family History Father Family Medical History: No Reported History Additional Family Medical History / Comment(s): Grandfather had a heart transplant. Mother Family Medical History: No Reported History Medications and Allergies Home Medications Medication Instructions Recorded Confirmed Type Albuterol Sulfate [Ventolin HFA] 1 - 2 puff INHALATION RT-Q4H PRN 12/21/23 12/21/23 History Escitalopram [Lexapro] 20 mg PO DAILY 12/21/23 12/21/23 History Fluticasone Propion/Salmeterol 1 puff INHALATION RT-BID 12/21/23 12/21/23 History [Wixela 500-50 Inhub] Multivitamins, Thera [Multivitamin 1 tab PO DAILY 12/21/23 12/21/23 History (formulary)] Rosuvastatin [Crestor] 10 mg PO DAILY 12/21/23 12/21/23 History Sulfamethox-Tmp 800-160Mg [Bactrim 1 tab PO BID 12/21/23 12/21/23 History DS 800-160 mg] Testosterone Cypionate 200 mg IM Q21D 12/21/23 12/21/23 History [Depo-Testosterone] lisinopriL [Prinivil] 20 mg PO DAILY 12/21/23 12/21/23 History Allergies Allergy/AdvReac Type Severity Reaction Status Date / Time No Known Allergies Allergy Verified 12/21/23 12:59 Physical Exam Vitals: Vital Signs Temp Pulse Pulse Resp BP BP Pulse Ox 12/22/23 13:06 96 12/22/23 11:28 96 16 165/90 95 12/22/23 08:41 98.4 F 101 H 16 168/68 97 12/22/23 03:10 97 16 119/63 98 12/21/23 23:10 103 H 16 134/60 97 12/21/23 20:45 98.3 F 105 H 16 165/93 96 12/21/23 18:44 111 H 12/21/23 18:15 98.1 F 111 H 16 171/92 96 12/21/23 17:55 96 18 163/97 97 Intake and Output 12/21/23 12/22/23 12/22/23 22:59 06:59 14:59 Intake Total 900 Balance 900 Intake: Oral 900 Other: Voiding Method Toilet Toilet Toilet Urinal Urinal Urinal # Voids 3 Weight 92.986 kg 93 kg GENERAL DESCRIPTION: Middle-aged male lying in bed, no distress. No tachypnea or accessory muscle of respiration use. HEENT: Shows Pallor , no scleral icterus. Oral mucous membrane is dry. No pharyngeal erythema or thrush NECK: Trachea central, no thyromegaly. LUNGS: Unlabored breathing. Clear to auscultation anteriorly. No wheeze or crackle. HEART: S1, S2, regular rate and rhythm. No loud murmur ABDOMEN: Soft, no tenderness , guarding or rigidity, no organomegaly EXTREMITIES: No edema of feet. SKIN: Left gluteal did have a small open area with some bloodstained drainage culture were obtained NEUROLOGICAL: The patient is awake, alert, oriented x3, mood and affect normal. Results CBC & Chem 7: 12/22/23 06:05 12/22/23 13:30 Labs: Abnormal Lab Results - Last 24 Hours (Table) 12/21/23 12/21/23 12/21/23 Range/Units 11:29 13:07 17:16 WBC (3.8-10.6) k/uL Neutrophils # (1.3-7.7) k/uL Monocytes # (0-1.0) k/uL Sodium 130 L (137-145) mmol/L Potassium 5.8 H (3.5-5.1) mmol/L Chloride 97 L (98-107) mmol/L BUN 23 H (9-20) mg/dL Creatinine 1.33 H (0.66-1.25) mg/dL Glucose 323 H (74-99) mg/dL POC Glucose (mg/dL) 280 H (70-110) mg/dL Hemoglobin A1c 7.6 H (<=6.0) % Total Protein (6.3-8.2) g/dL 12/21/23 12/22/23 12/22/23 Range/Units 20:33 06:05 06:05 WBC 19.9 H (3.8-10.6) k/uL Neutrophils # 17.3 H (1.3-7.7) k/uL Monocytes # 1.1 H (0-1.0) k/uL Sodium 127 L (137-145) mmol/L Potassium 6.1 H* (3.5-5.1) mmol/L Chloride 92 L (98-107) mmol/L BUN 25 H (9-20) mg/dL Creatinine 1.42 H (0.66-1.25) mg/dL Glucose 327 H (74-99) mg/dL POC Glucose (mg/dL) 334 H (70-110) mg/dL Hemoglobin A1c (<=6.0) % Total Protein 6.1 L (6.3-8.2) g/dL 12/22/23 12/22/23 Range/Units 06:09 11:33 WBC (3.8-10.6) k/uL Neutrophils # (1.3-7.7) k/uL Monocytes # (0-1.0) k/uL Sodium (137-145) mmol/L Potassium (3.5-5.1) mmol/L Chloride (98-107) mmol/L BUN (9-20) mg/dL Creatinine (0.66-1.25) mg/dL Glucose (74-99) mg/dL POC Glucose (mg/dL) 290 H 292 H (70-110) mg/dL Hemoglobin A1c (<=6.0) % Total Protein (6.3-8.2) g/dL Assessment and Plan (1) Abscess, gluteal, left Current Visit: Yes Status: Acute Code(s): L02.31 - CUTANEOUS ABSCESS OF BUTTOCK SNOMED Code(s): 41588777 (2) Abscess Current Visit: Yes Status: Acute Code(s): L02.91 - CUTANEOUS ABSCESS, UNSPECIFIED SNOMED Code(s): 692519718 Plan: 1patient with the hospital with left gluteal pain and swelling in this patient who did have features of SIRS/sepsis with tachycardia and elevated white count source likely left gluteal area abscess versus hematoma in this patient symptoms started after he did injection to the area 2-local culture has been obtained to guide further antibiotic therapy 3-discontinue clindamycin 4-we will start the patient vancomycin pharmacy to dose and Unasyn pending culture completion We will follow on clinical condition and cultures to further adjust medication if needed Thank you for this consultation we will follow the patient along with you Dictation was produced using [employer] dictation software. please excuse any grammatical, word or spelling errors. Time with Patient: Greater than 30
[2023-12-22] MEDS: INSULIN DETEMIR (LEVEMIR) 100 UNIT/ML SYR SQ ONE (23:40)
[2023-12-23 06:10] LABS: Glucose,Whole Blood 222 mg/dL (70-110)
[2023-12-23] MEDS ORDERED: INSULIN DETEMIR (LEVEMIR) 100 UNIT/ML SYR SQ SCH (07:00)
[2023-12-23] MEDS: INSULIN DETEMIR (LEVEMIR) 100 UNIT/ML SYR SQ SCH (07:03)
[2023-12-23] MEDS: INSULIN ASPART (NovoLOG) 100 UNIT/ML VIAL SQ SCH (07:04)
[2023-12-23 07:50] LABS: HCT 43.5 % (39.0-53.0); HGB 13.8 gm/dL (13.0-17.5); MCH 30.8 pg (25.0-35.0); MCHC 31.7 g/dL (31.0-37.0); Mean Platelet Volume 9.2; Platelet Count 371 k/uL (150-450); RBC 4.48 m/uL (4.30-5.90); RDW 14.1 % (11.5-15.5); WBC 16.4 k/uL (3.8-10.6)
[2023-12-23 08:04] LABS: African American GFR (CKD) >90 (>60 ml/min/1.73 sqM); Anion Gap 5 mmol/L; Blood Urea Nitrogen 23 mg/dL (9-20); Calcium 9.1 mg/dL (8.4-10.2); Carbon Dioxide 28 mmol/L (22-30); Chloride 96 mmol/L (98-107); Glucose 237 mg/dL (74-99); Non-African American GFR(CKD) 84 (>60 ml/min/1.73 sqM); Potassium 4.9 mmol/L (3.5-5.1); Sodium 129 mmol/L (137-145)
[2023-12-23] MEDS: DAPAGLIFLOZIN PROPANEDIOL 10 MG TABLET PO SCH (08:35)
[2023-12-23 08:56] LABS: Band Neutrophils % 1 %; Eosinophils # (M) 0.16 k/uL (0-0.7); Lymphocytes # (M) 1.64 k/uL (1.0-4.8); Monocytes # (M) 1.31 k/uL (0-1.0); Neutrophils % (M) 80 %; Nucleated Red Blood Cells 0 /100 WBC (0-0); Total Cells Counted 100
[2023-12-23 08:57] LABS: RBC Morphology Normal
[2023-12-23 11:28] LABS: Glucose,Whole Blood 145 mg/dL (70-110)
[2023-12-23 11:41] VITALS: BMI 27.6
--- NOTE | 2023-12-23 12:43 | P.PN ---
Subjective Progress Note Date: 12/23/23 Principal diagnosis: Reason for follow-up is left gluteal fluid collection hematoma/abscess Patient is a 48-year-old male with a past medical history significant for hypertension hyperlipidemia patient presenting to the hospital concerning for left gluteal area pain apparently the patient has injected hGH in the left gluteal area before his symptoms started. Did have a ultrasound which shows complex mass likely representing hematoma. On today's evaluation that is 12/23/2023, the patient continues to be afebrile, the patient is on room air and breathing comfortably, the Pt denies having any chest pain or cough, the patient denies having any abdominal pain no vomiting or any diarrhea patient pain to the left gluteal area has decreased in intensity. Patient white count is down to 16.4 creatinine 1.07 culture obtained yesterday currently pending Objective - Vital Signs Vital signs: Vital Signs Temp 98.3 F 12/23/23 08:25 Pulse 88 12/23/23 08:25 Resp 17 12/23/23 08:25 BP 131/84 12/23/23 08:25 Pulse Ox 96 12/23/23 08:25 FiO2 Intake & Output 12/22/23 12/23/23 12/23/23 18:59 06:59 18:59 Intake Total 1140 118 Balance 1140 118 Weight 92.5 kg Intake: Oral 1140 118 Other: Voiding Method Toilet Toilet Toilet Urinal Urinal Urinal # Voids 3 - Exam GENERAL DESCRIPTION: Middle-age male lying in bed in no distress RESPIRATORY SYSTEM: Unlabored breathing , decreased breath sounds at bases HEART: S1 S2 regular rate and rhythm , ABDOMEN: Soft , no tenderness, left gluteal area minimal bloodstained drainage on the dressing no significant induration EXTREMITIES: No edema feet - Labs CBC & Chem 7: 12/23/23 06:56 12/23/23 06:56 Labs: Abnormal Lab Results - Last 24 Hours (Table) 12/22/23 12/22/23 12/22/23 Range/Units 11:33 13:30 16:52 WBC (3.8-10.6) k/uL Neutrophils # (Manual) (1.3-7.7) k/uL Monocytes # (Manual) (0-1.0) k/uL Sodium (137-145) mmol/L Potassium 5.7 H (3.5-5.1) mmol/L Chloride (98-107) mmol/L BUN (9-20) mg/dL Glucose (74-99) mg/dL POC Glucose (mg/dL) 292 H 358 H (70-110) mg/dL 12/22/23 12/23/23 12/23/23 Range/Units 19:53 06:08 06:56 WBC 16.4 H (3.8-10.6) k/uL Neutrophils # (Manual) 13.20 H (1.3-7.7) k/uL Monocytes # (Manual) 1.31 H (0-1.0) k/uL Sodium (137-145) mmol/L Potassium (3.5-5.1) mmol/L Chloride (98-107) mmol/L BUN (9-20) mg/dL Glucose (74-99) mg/dL POC Glucose (mg/dL) 414 H 222 H (70-110) mg/dL 12/23/23 Range/Units 06:56 WBC (3.8-10.6) k/uL Neutrophils # (Manual) (1.3-7.7) k/uL Monocytes # (Manual) (0-1.0) k/uL Sodium 129 L (137-145) mmol/L Potassium (3.5-5.1) mmol/L Chloride 96 L (98-107) mmol/L BUN 23 H (9-20) mg/dL Glucose 237 H (74-99) mg/dL POC Glucose (mg/dL) (70-110) mg/dL Microbiology - Last 24 Hours (Table) 12/22/23 16:35 Gram Stain - Preliminary Buttock 12/21/23 14:10 Blood Culture - Preliminary Blood 12/21/23 13:59 Blood Culture - Preliminary Blood Assessment and Plan (1) Abscess, gluteal, left Current Visit: Yes Status: Acute Code(s): L02.31 - CUTANEOUS ABSCESS OF BUTTOCK SNOMED Code(s): 02732783 (2) Abscess Current Visit: Yes Status: Acute Code(s): L02.91 - CUTANEOUS ABSCESS, UNSPECIFIED SNOMED Code(s): 212137710 Plan: 1patient with the hospital with left gluteal pain and swelling in this patient who did have features of SIRS/sepsis with tachycardia and elevated white count source likely left gluteal area abscess versus hematoma in this patient symptoms started after he did injection to the area 2-local culture has been obtained which are currently pending 3-patient to continue with vancomycin pharmacy to dose and Unasyn while waiting for the culture to finalize Dictation was produced using [employer] dictation software. please excuse any grammatical, word or spelling errors. Time with Patient: Less than 30
--- NOTE | 2023-12-23 13:34 | P.PN ---
Subjective patient is seen for follow-up for acute kidney injury and hyponatremia. Currently maintained on normal saline with improvement in renal function and serum sodium levels. Patient is possibly scheduled for I&D of the left buttock abscess today. No significant new complaints today. Serum creatinine is down to 1.0 from 1.56 on admission. Good urine output noted. Objective - Vital Signs Vital signs: Vital Signs Temp 98.3 F 12/23/23 08:25 Pulse 90 12/23/23 11:20 Resp 18 12/23/23 11:20 BP 142/88 12/23/23 11:20 Pulse Ox 96 12/23/23 11:20 FiO2 Intake & Output 12/22/23 12/23/23 12/23/23 18:59 06:59 18:59 Intake Total 1140 118 Balance 1140 118 Weight 92.5 kg 92.5 kg Intake: Oral 1140 118 Other: Voiding Method Toilet Toilet Toilet Urinal Urinal Urinal # Voids 3 1 - Exam patient is awake, alert oriented 3 No acute distress Examination of the heart S1 and S2 Examination of the lungs bilateral breath sounds are heard Abdomen is soft nontender Examination of lower extremities shows no significant edema, left hip abscess currently dressed 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 - Labs CBC & Chem 7: 12/23/23 06:56 12/23/23 06:56 Labs: Abnormal Lab Results - Last 24 Hours (Table) 12/22/23 12/22/23 12/22/23 Range/Units 13:30 16:52 19:53 WBC (3.8-10.6) k/uL Neutrophils # (Manual) (1.3-7.7) k/uL Monocytes # (Manual) (0-1.0) k/uL Sodium (137-145) mmol/L Potassium 5.7 H (3.5-5.1) mmol/L Chloride (98-107) mmol/L BUN (9-20) mg/dL Glucose (74-99) mg/dL POC Glucose (mg/dL) 358 H 414 H (70-110) mg/dL 12/23/23 12/23/23 12/23/23 Range/Units 06:08 06:56 06:56 WBC 16.4 H (3.8-10.6) k/uL Neutrophils # (Manual) 13.20 H (1.3-7.7) k/uL Monocytes # (Manual) 1.31 H (0-1.0) k/uL Sodium 129 L (137-145) mmol/L Potassium (3.5-5.1) mmol/L Chloride 96 L (98-107) mmol/L BUN 23 H (9-20) mg/dL Glucose 237 H (74-99) mg/dL POC Glucose (mg/dL) 222 H (70-110) mg/dL 12/23/23 Range/Units 11:27 WBC (3.8-10.6) k/uL Neutrophils # (Manual) (1.3-7.7) k/uL Monocytes # (Manual) (0-1.0) k/uL Sodium (137-145) mmol/L Potassium (3.5-5.1) mmol/L Chloride (98-107) mmol/L BUN (9-20) mg/dL Glucose (74-99) mg/dL POC Glucose (mg/dL) 145 H (70-110) mg/dL Microbiology - Last 24 Hours (Table) 12/22/23 16:35 Gram Stain - Preliminary Buttock 12/21/23 14:10 Blood Culture - Preliminary Blood 12/21/23 13:59 Blood Culture - Preliminary Blood Assessment and Plan Assessment: 1. Acute kidney injury, mostly prerenal and improving with IV hydration. Serum creatinine may also be falsely elevated from use of Bactrim. NSAIDs will be discontinued. UA has been ordered and ultrasound of the kidneys is unremarkable for obstructive uropathy. 2. Hyperkalemia associated with acute kidney injury, NSAIDs, hyperglycemia and use of Bactrim. 3. Hyponatremia, patient appears hypovolemic. Continue with normal saline. urine sodium and urine osmolality will be ordered as well. 4. Hypertension, uncontrolled, maintained on lisinopril at home. Most likely exacerbated with use of NSAIDs. Lisinopril will be held for now and I will add Coreg. 5. Left buttock abscess maintained on clindamycin 6. Polyuria and polydipsia secondary to diabetes, new onset Plan: tinea with normal saline Repeat labs in a.m. Patient is stable to proceed with surgery from nephrology standpoint.
[2023-12-23 14:35] LABS: Appearance,Urine Clear (Clear); Bilirubin,Urine Negative (Negative); Blood,Urine Negative (Negative); Color,Urine Light Yellow; Glucose,Urine (UA) 4+ (Negative); Ketones,Urine Negative (Negative); Leukocyte Esterase,Urine Negative (Negative); Nitrite,Urine Negative (Negative); PH, Urine 7.5 (5.0-8.0); Protein,Urine Negative (Negative); Urobilinogen,Urine <2.0 mg/dL (<2.0)
[2023-12-23 16:33] LABS: Glucose,Whole Blood 119 mg/dL (70-110)
[2023-12-23] MEDS: metFORMIN 850 MG TAB PO SCH (17:13)
[2023-12-23] MEDS ORDERED: BUTALB/APAP/CAFF 50-325-40MG TAB PO PRN (17:38)
[2023-12-23] MEDS ORDERED: SUCCINYLCHOLINE CHLORIDE 200 MG/10 ML VIAL IV ONE (18:57)
[2023-12-23] MEDS ORDERED: KETOROLAC 30 MG/ML 1 ML VIAL ONE (18:57)
[2023-12-23] MEDS ORDERED: LIDOCAINE 1% INJ 10MG/ML (20 ML MDV) ONE (18:57)
[2023-12-23] MEDS ORDERED: PROPOFOL 10 MG/ML 20 ML VIAL IV ONE (18:57)
[2023-12-23] MEDS ORDERED: HYDROmorphone (PF) 1 MG/ML ONE (18:57)
[2023-12-23] MEDS ORDERED: fentaNYL (PF) 50 MCG/ML 2 ML AMP ONE (18:57)
[2023-12-23] MEDS ORDERED: MIDAZOLAM 2 MG/2 ML VIAL ONE (18:57)
[2023-12-23] MEDS: IV FLUID CONTINUATION 1,000 ML IV ONE ×2 (19:00→20:36)
[2023-12-23] MEDS: LIDOCAINE 2%-EPI 1:100,000 20 ML VIAL SQ ONE (19:16)
--- NOTE | 2023-12-23 20:13 | P.OP ---
Date of Procedure: 12/23/23 Description of Procedure: SURGEON: DONAL MCGINNIS MD PREOPERATIVE DIAGNOSES: 1. Sepsis due to complicated left buttock abscess with cellulitis 2. Newly diagnosed diabetes type 2, poorly controlled with hyperglycemia 3. Hypertensive heart disease 4. Hyperlipidemia 5. Depressive disorder 6. Asthma 7. Hypotestosteronism 8. Generalized anxiety disorder 9. Hyponatremia due to hyperglycemia 10. Hyperglycosuria 11. Acute kidney injury 12. Hyperkalemia 13. Failed outpatient antibiotic management POSTOPERATIVE DIAGNOSES: 1. Sepsis due to complicated left buttock abscess with cellulitis, 9 x 9 cm 2. Newly diagnosed diabetes type 2, poorly controlled with hyperglycemia 3. Hypertensive heart disease 4. Hyperlipidemia 5. Depressive disorder 6. Asthma 7. Hypotestosteronism 8. Generalized anxiety disorder 9. Hyponatremia due to hyperglycemia 10. Hyperglycosuria 11. Acute kidney injury 12. Hyperkalemia 13. Complicated intramuscular left buttock infected hematoma 9 x 9 cm 14. Failed outpatient antibiotic management PROCEDURES PERFORMED: 1. Incision and drainage of complex intramuscular infected left buttock hematoma 9 x 9 cm 2. Mechanical debridement with water jet lavage, 1 L normal saline 9 x 9 cm 3. Drainage of 60 cc infected hematoma intramuscular left buttock Anesthesia: GETA Estimated Blood Loss (ml): 10 Pathology: Aerobic and anerobic cultures left buttock, infected hematoma Condition: stable COMPLICATIONS: None. Operative Findings: 1. Over 60 cc gelatinous infected hematoma evacuated subfascial/intramuscular left buttock INDICATIONS: The patient is a 48-year-old male who presented to the hospital with failed outpatient antibiotic management for left buttock swelling/abscess. Patient presented with sepsis including white count over 25,000 including acute hyperglycemia, newly diagnosed diabetes type 2, acute kidney injury, hyperkalemia and severe dehydration with hyponatremia. Prior attempt incision and drainage in the emergency room area was unsuccessful as he persisted to have a large hematoma evident on ultrasound. Deep surgical drainage was described. Benefits and risks of surgical intervention were described including recurrence, pain, need for further surgery. Informed consent was obtained. DESCRIPTION OR PROCEDURE: Patient was brought into the operating room. After general induction, he was positioned in right lateral decubitus position. The left buttock was prepped and draped in a standard sterile fashion with Betadine. Timeout protocol was confirmed with the surgical team regarding the patient's name, procedure to be performed including preoperative medications. DVT prophylaxis was confirmed. At the left buttock, the phlegmon was palpated and measured 9 cm with indelible marker. A transverse incision of 3 cm was made into the subcutaneous tissue for drainage. A hemostat was probed into the depth of the wound through the fascia with immediate expression of infected hematoma over 60 cc including gelatinous material. Aerobic anaerobic cultures were obtained. Normal saline water jet 1000 cc was used to irrigate the pocket of infection until clear. Quarter inch [place] drain was placed along the depth of the wound and sutured to the skin using interrupted 2-0 nylon. The skin was cleansed with dilute hydroperoxide and water. Fluffs 4 x 4's and ABD was applied to the skin with 6 inch Medipore surgical tape. At the end of the procedure, needle, sponge, and instrument count was verified correct by certified surgical assistant. The patient was transferred into the postanesthesia care unit in stable condition. S
--- NOTE | 2023-12-23 23:33 | P.PN ---
Subjective Progress Note Date: 12/23/23 HISTORY OF PRESENT ILLNESS: 48-year-old with active medical history of hypertension, testosterone deficiency, depression, hyperlipidemia, prediabetic, who was admitted to the hospital on 12/22/2023 because of recurrent abdominal pain for 2 to 3 days with left buttocks pain and discomfort found to have an open area draining of the left hip site ultrasound showed complex cyst of 6.1 cm is not having any hip pain able to ambulate and walk. Found to have white blood cell of 19,900 left shifted also found to be in acute kidney injury with potassium of 6.1 at the time blood sugar was close to 300 up till his admission he was not in any diabetic medication management. Culture was 1 patient seen Ortho diagnosed with left lateral buttocks abscess recommend aggressive treatment and management with IV antibiotics was started on vancomycin waiting for general surgery to drain apparently had several attempts of I&D at the bedside not successful scheduled for surgical drain apparently will be taken to the OR to do. Culture was done results still pending at this point he was initially started on clindamycin but switched to vancomycin and Unasyn per infectious disease recommendation we will continue current antibiotic till the final culture is done patient hopefully will have I&D by general surgery. Was started initially on Levemir 25 units at bedtime along with NovoLog 8 units AC meals plus sliding scales blood sugar still high will continue probably higher titrate medication, patient would benefit eventually from metformin and probably SGLT2 product to help meds after the abscess is drained taking care of. REVIEW OF SYSTEMS: CONSTITUTIONAL: Well-developed no acute respiratory distress. EYES: No icterus sclerae, no conjunctivitis. EARS, NOSE, MOUTH, THROAT, and FACE: No sore throat, lymphadenopathy, carotid bruits or deformity. RESPIRATORY: No SOB cough or wheezes. CARDIOVASCULAR: No CP, Palpitation, PND, Orthopnea, or angina. GASTROINTESTINAL: Slight abdominal discomfort with nausea no vomiting diarrhea or constipation. GENITOURINARY: Polyuria and nocturia and multiple frequency. INTEGUMENT/BREAST: Negative for any muscular injury with mild osteoarthritis.. HEMATOLOGIC/LYMPHATIC: Negative for bleed or purpura. MUSCULOSKELTAL: Mild arthralgia and myalgia with slight pain discomfort and drainage from the left buttocks area. NEURLOGICAL: No LOC, Sz or syncope, blurred vision dizziness or abnormality.. BEHAVIORAL/PSYCH: Negative. ENDOCRINE: Negative. PHYSICAL EXAMINATION: General Appearance: Alert, cooperative, no distress, appears stated age. Neck HEENT: Supple, no lymphadenopathy, no thyroid enlargement, no carotid bruits. Lungs: Clear to auscultation without crackles or wheezes no rhonchi, no deformity. Chest Wall: Chest wall normal expansion with deep inspiration no tenderness and no deformity was found on exam, no costochondral pain or discomfort. Heart: Regular rate and rhythm, S1, S2 normal, no murmur, rub or gallop. Back: Symmetric, no curvature, ROM normal, no CVA tenderness. Abdomen: Soft positive bowel sounds slight discomfort in the epigastric and left lower quadrant area no rebound or rigidity no masses. Extremities: Still have full range of motion lateral side of the left buttocks area still have slightly drainage at the time with mild fluctuation and dis comfort lymph node in the groin area still borderline with mildly large. Pulses: 2+ and symmetric. Skin: Skin color, texture, tugor normal, no rashes or lesions. Neurologic: Alert oriented x3 cranial nerves II through XII intact, no motor deficit, no abnormal balance or gait. 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 _Large abscess in the left buttocks area will require drainage might be done on the surgical unit. _Onset of diabetes most likely type II A1c was 7.6 on December 21, 2023 apparently is not on any medication on management was initiated Levemir 15 units at bedtime will titrate higher to keep blood sugar under control and NovoLog was increased to 8 units AC meals plus sliding scales coverage if continue having blood sugar above 400 might benefit from insulin drip till symptoms are better controlled. _Acute kidney injury: On admission creatinine was 1.42 with GFR of 59 potassium 6.1 nephrology consultation on board continue gentle hydration repeat CMP this morning. _Acute hyperkalemia: Likely etiology at this point was initiated on Lokelma 5 mg 3 times daily and stopped eventually with the potassium down still on sodium bicarbonate he was on lisinopril 20 mg daily was stopped completely as it said close NIKKI inhibitor causing hyperkalemia can be aggravated with abscess. _Hypertension: Was on lisinopril prior to admission off lisinopril for now can use calcium channel fran to keep systolic blood pressure below 130. _Hyperlipidemia was on rosuvastatin 10 mg a day was switched to atorvastatin per hospital policy. _Severe pain from acute abscess and swelling will continue Dilaudid and switch to hydrocodone orally. _Testosterone deficiency: Has been on testosterone injection every 21 days which will be held for now resume after his improvement. _Asthma: Continue Wixela and Ventolin. _GI prophylaxis: Continue Pepcid 20 mg daily. _DVT prophylaxis: Early mobilization and knee-high ANNEMARIE hose. CODE STATUS: Full code. Objective - Vital Signs Vital signs: Vital Signs Temp 98.5 F 12/22/23 20:20 Pulse 80 12/23/23 04:00 Resp 16 12/23/23 04:00 BP 133/88 12/23/23 04:00 Pulse Ox 96 12/23/23 04:00 FiO2 Intake & Output 12/22/23 12/22/23 12/23/23 06:59 18:59 06:59 Intake Total 1140 Balance 1140 Weight 93 kg Intake: Oral 1140 Other: Voiding Method Toilet Toilet Toilet Urinal Urinal Urinal # Voids 3 - Labs CBC & Chem 7: 12/22/23 06:05 12/22/23 13:30 Labs: Abnormal Lab Results - Last 24 Hours (Table) 12/21/23 12/22/23 12/22/23 Range/Units 11:29 06:05 06:05 WBC 19.9 H (3.8-10.6) k/uL Neutrophils # 17.3 H (1.3-7.7) k/uL Monocytes # 1.1 H (0-1.0) k/uL Sodium 127 L (137-145) mmol/L Potassium 6.1 H* (3.5-5.1) mmol/L Chloride 92 L (98-107) mmol/L BUN 25 H (9-20) mg/dL Creatinine 1.42 H (0.66-1.25) mg/dL Glucose 327 H (74-99) mg/dL POC Glucose (mg/dL) (70-110) mg/dL Hemoglobin A1c 7.6 H (<=6.0) % Total Protein 6.1 L (6.3-8.2) g/dL 12/22/23 12/22/23 12/22/23 Range/Units 06:09 11:33 13:30 WBC (3.8-10.6) k/uL Neutrophils # (1.3-7.7) k/uL Monocytes # (0-1.0) k/uL Sodium (137-145) mmol/L Potassium 5.7 H (3.5-5.1) mmol/L Chloride (98-107) mmol/L BUN (9-20) mg/dL Creatinine (0.66-1.25) mg/dL Glucose (74-99) mg/dL POC Glucose (mg/dL) 290 H 292 H (70-110) mg/dL Hemoglobin A1c (<=6.0) % Total Protein (6.3-8.2) g/dL 12/22/23 12/22/23 Range/Units 16:52 19:53 WBC (3.8-10.6) k/uL Neutrophils # (1.3-7.7) k/uL Monocytes # (0-1.0) k/uL Sodium (137-145) mmol/L Potassium (3.5-5.1) mmol/L Chloride (98-107) mmol/L BUN (9-20) mg/dL Creatinine (0.66-1.25) mg/dL Glucose (74-99) mg/dL POC Glucose (mg/dL) 358 H 414 H (70-110) mg/dL Hemoglobin A1c (<=6.0) % Total Protein (6.3-8.2) g/dL Microbiology - Last 24 Hours (Table) 12/21/23 14:10 Blood Culture - Preliminary Blood 12/21/23 13:59 Blood Culture - Preliminary Blood
[2023-12-24 00:12] LABS: Glucose,Whole Blood 281 mg/dL (70-110)
[2023-12-24] MEDS: BENZOCAINE/MENTHOL LOZENG 1 EACH LOZENGE MUCOUS MEM PRN (04:36)
[2023-12-24 06:04] LABS: Glucose,Whole Blood 161 mg/dL (70-110)
[2023-12-24 07:45] LABS: HCT 40.9 % (39.0-53.0); MCH 31.2 pg (25.0-35.0); MCHC 31.9 g/dL (31.0-37.0); MCV 97.7 fL (80.0-100.0); Mean Platelet Volume 9.1; Platelet Count 368 k/uL (150-450); RBC 4.18 m/uL (4.30-5.90); RDW 14.3 % (11.5-15.5); WBC 17.3 k/uL (3.8-10.6)
[2023-12-24 08:28] LABS: ALT 79 U/L (4-49); AST 65 U/L (17-59); African American GFR (CKD) >90 (>60 ml/min/1.73 sqM); Albumin 2.9 g/dL (3.5-5.0); Alkaline Phosphatase 61 U/L (38-126); Anion Gap 6 mmol/L; Blood Urea Nitrogen 28 mg/dL (9-20); Calcium 8.7 mg/dL (8.4-10.2); Carbon Dioxide 22 mmol/L (22-30); Chloride 103 mmol/L (98-107); Glucose 162 mg/dL (74-99); Non-African American GFR(CKD) 82 (>60 ml/min/1.73 sqM); Potassium 4.6 mmol/L (3.5-5.1); Sodium 131 mmol/L (137-145); Total Bilirubin 0.4 mg/dL (0.2-1.3); Total Protein 5.1 g/dL (6.3-8.2)
[2023-12-24 11:45] LABS: Glucose,Whole Blood 82 mg/dL (70-110)
[2023-12-24] MEDS: INSULIN ASPART (NovoLOG) 100 UNIT/ML VIAL SQ SCH (12:30)
--- NOTE | 2023-12-24 13:14 | P.PN ---
Subjective patient is seen for follow-up for acute kidney injury and hyponatremia. Currently maintained on normal saline with improvement in renal function and serum sodium levels. status post I&D off left intramuscular infected hematoma on 12/23/2023 No significant new complaints today. Serum creatinine is down to 1.0 from 1.56 on admission. Good urine output noted. Objective - Vital Signs Vital signs: Vital Signs Temp 98 F 12/24/23 08:50 Pulse 91 12/24/23 12:05 Resp 18 12/24/23 12:05 BP 139/89 12/24/23 12:05 Pulse Ox 98 12/24/23 12:05 FiO2 Intake & Output 12/23/23 12/24/23 12/24/23 18:59 06:59 18:59 Intake Total 118 1000 750 Output Total 10 Balance 118 990 750 Weight 92.5 kg 94.1 kg Intake: IV 1000 Oral 118 750 Output: Estimated Blood Loss 10 Other: Voiding Method Toilet Toilet Toilet Urinal Urinal Urinal # Voids 1 3 1 - Exam patient is awake, alert oriented 3 No acute distress Examination of the heart S1 and S2 Examination of the lungs bilateral breath sounds are heard Abdomen is soft nontender Examination of lower extremities shows no significant edema, left hip dressing noted 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 exam 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 intact - Labs CBC & Chem 7: 12/24/23 06:03 12/24/23 06:03 Labs: Abnormal Lab Results - Last 24 Hours (Table) 12/23/23 12/23/23 12/24/23 Range/Units 14:30 16:32 00:10 WBC (3.8-10.6) k/uL RBC (4.30-5.90) m/uL Sodium (137-145) mmol/L BUN (9-20) mg/dL Glucose (74-99) mg/dL POC Glucose (mg/dL) 119 H 281 H (70-110) mg/dL AST (17-59) U/L ALT (4-49) U/L Total Protein (6.3-8.2) g/dL Albumin (3.5-5.0) g/dL Urine Glucose (UA) 4+ H (Negative) 12/24/23 12/24/23 12/24/23 Range/Units 06:02 06:03 06:03 WBC 17.3 H (3.8-10.6) k/uL RBC 4.18 L (4.30-5.90) m/uL Sodium 131 L (137-145) mmol/L BUN 28 H (9-20) mg/dL Glucose 162 H (74-99) mg/dL POC Glucose (mg/dL) 161 H (70-110) mg/dL AST 65 H (17-59) U/L ALT 79 H (4-49) U/L Total Protein 5.1 L (6.3-8.2) g/dL Albumin 2.9 L (3.5-5.0) g/dL Urine Glucose (UA) (Negative) Microbiology - Last 24 Hours (Table) 12/21/23 14:10 Blood Culture - Preliminary Blood 12/21/23 13:59 Blood Culture - Preliminary Blood 12/22/23 16:35 Gram Stain - Preliminary Buttock Wound Culture - Preliminary Assessment and Plan Assessment: 1. Acute kidney injury, mostly prerenal and improving with IV hydration. Serum creatinine may also be falsely elevated from use of Bactrim. NSAIDs will be discontinued. UA has been ordered and ultrasound of the kidneys is unremarkable for obstructive uropathy. 2. Hyperkalemia associated with acute kidney injury, NSAIDs, hyperglycemia and use of Bactrim. 3. Hyponatremia, patient appears hypovolemic. improving with normal saline. 4. Hypertension, uncontrolled, maintained on lisinopril at home. Most likely exacerbated with use of NSAIDs. Lisinopril will be held for now and I will add Coreg. 5. Left buttock abscess maintained on clindamycin 6. Polyuria and polydipsia secondary to diabetes, new onset Plan: continue with normal saline Repeat labs in a.m.
--- NOTE | 2023-12-24 13:55 | P.PN ---
Subjective Progress Note Date: 12/24/23 CHIEF COMPLAINT: Left buttock abscess HISTORY OF PRESENT ILLNESS: Patient postop day #1 status post incision and drainage of complex intramuscular infected left buttock hematoma. Patient has P[place] drain in place. Patient denies any pain. Denies any nausea or vomiting. Afebrile. WBC 16.4 up to 17.3 blood sugar 162 PHYSICAL EXAM: VITAL SIGNS: Reviewed GENERAL: Well-developed in no acute distress. HEENT: No sclera icterus. Extraocular movements grossly intact. Moist buccal mucosa. Head is atraumatic, normocephalic. Hears conversational speech. No nasal drainage. NECK: Supple without lymphadenopathy. CHEST: Non-labored respirations and equal bilateral excursions. CARDIOVASCULAR: Palpable 2+ radial pulses. ABDOMEN: Soft. Nondistended. Nontender. MUSCULOSKELETAL: No clubbing or cyanosis. NEUROLOGIC: No focal or lateralizing signs. Cranial nerves II through XII grossly intact. PSYCH: Appropriate affect. Alert and oriented to person, place and time. SKIN: Left buttock skin is clean sutures are in place [place] drain draining serosanguineous drainage noted on dressing. ASSESSMENT: 1. Sepsis due to complicated left buttock abscess with cellulitis, 9 x 9 cm 2. Newly diagnosed diabetes type 2, poorly controlled with hyperglycemia 3. Hypertensive heart disease 4. Hyperlipidemia 5. Depressive disorder 6. Asthma 7. Hypotestosteronism 8. Generalized anxiety disorder 9. Hyponatremia due to hyperglycemia 10. Hyperglycosuria 11. Acute kidney injury 12. Hyperkalemia 13. Complicated intramuscular left buttock infected hematoma 9 x 9 cm 14. Failed outpatient antibiotic management PLAN: -Continue antibiotics per ID service -Recommend good blood sugar control -Patient can ambulate -Continue local wound care -Glucerna protein supplement ordered to help facilitate wound healing Physician Practice Managers note has been reviewed by physician. Signing provider agrees with the documented findings, assessment, and plan of care. Objective - Vital Signs Vital signs: Vital Signs Temp 98 F 12/24/23 08:50 Pulse 91 12/24/23 12:05 Resp 18 12/24/23 12:05 BP 139/89 12/24/23 12:05 Pulse Ox 98 12/24/23 12:05 FiO2 Intake & Output 12/23/23 12/24/23 12/24/23 18:59 06:59 18:59 Intake Total 118 1000 750 Output Total 10 Balance 118 990 750 Weight 92.5 kg 94.1 kg Intake: IV 1000 Oral 118 750 Output: Estimated Blood Loss 10 Other: Voiding Method Toilet Toilet Toilet Urinal Urinal Urinal # Voids 1 3 1 - Labs CBC & Chem 7: 12/24/23 06:03 12/24/23 06:03 Labs: Abnormal Lab Results - Last 24 Hours (Table) 12/23/23 12/23/23 12/24/23 Range/Units 14:30 16:32 00:10 WBC (3.8-10.6) k/uL RBC (4.30-5.90) m/uL Sodium (137-145) mmol/L BUN (9-20) mg/dL Glucose (74-99) mg/dL POC Glucose (mg/dL) 119 H 281 H (70-110) mg/dL AST (17-59) U/L ALT (4-49) U/L Total Protein (6.3-8.2) g/dL Albumin (3.5-5.0) g/dL Urine Glucose (UA) 4+ H (Negative) 12/24/23 12/24/23 12/24/23 Range/Units 06:02 06:03 06:03 WBC 17.3 H (3.8-10.6) k/uL RBC 4.18 L (4.30-5.90) m/uL Sodium 131 L (137-145) mmol/L BUN 28 H (9-20) mg/dL Glucose 162 H (74-99) mg/dL POC Glucose (mg/dL) 161 H (70-110) mg/dL AST 65 H (17-59) U/L ALT 79 H (4-49) U/L Total Protein 5.1 L (6.3-8.2) g/dL Albumin 2.9 L (3.5-5.0) g/dL Urine Glucose (UA) (Negative) Microbiology - Last 24 Hours (Table) 12/21/23 14:10 Blood Culture - Preliminary Blood 12/21/23 13:59 Blood Culture - Preliminary Blood 12/22/23 16:35 Gram Stain - Preliminary Buttock Wound Culture - Preliminary
--- NOTE | 2023-12-24 14:33 | CDI ---
Documentation Clarification Form Date: 12/24/2023 02:06:25 PM From: Pilar Mott RN CCDS Phone: [phone] Admit Date: 12/21/2023 12:50:00 PM Patient Name: Corey Espinal Visit Number: [id number] Discharge Date: ATTENTION: The Clinical Documentation Specialists (CDI) and [facility] Coding Staff appreciate your assistance in clarifying documentation. Please respond to the clarification below the line at the bottom and electronically sign. The CDI & [facility] Coding staff will review the response and follow-up if needed. Please note: Queries are made part of the Legal Health Record. If you have any questions, please contact the author of this message via ITS. Doctor: Prince Mukherjee Sepsis is documented ID consult, 12/21 but is not noted in subsequent documentation. Clarification is requested. The patient has Sepsis documented in the ID consult, 12/21. Based on this information and the findings below, is there an additional diagnosis that is clinically appropriate for this patient? History/Risk Factors: 48-year old male presents to the ED for left buttock pain for about two and three days duration. Medical history: HTN, Prediabetes and HLD. Clinical Indicators: 12/20, Wbc: 25.7 12/20,Lactic acid: 3.1 12/20, Blood cultures: No growth after 48 hours 12/20, Vitals signs: B/P 155/105; HR 110; Temp 98.3F Oral; RR 20; SpO2 96% room air 12/21, Surgical note: Sepsis due to cellulitis and abscess. Infectious disease management due to complicated left buttock abscess with sepsis. Treatment: ID Consult, 12/21: patient with the hospital with left gluteal pain and swelling in this patient who did have features of SIRS/sepsis with tachycardia and elevated white count source likely left gluteal area abscess versus hematoma in this patient symptoms started after he did injection to the area. Antibiotics: 12/20 Clindamycin IVPB x 1; 12/20 12/21 Clindamycin IVPB Q6H; 12/21 Vancomycin IVPB Q12H, 12/21 Ampicillin IVPB Q6H IV Bolus: 12/20 0.9NS 3L IV Is there an additional diagnosis that is clinically appropriate for this patient? [ XX ] Sepsis confirmed poa, remains under treatment [ ] Sepsis ruled out [ ] Other condition, please specify [ ] Unable to determine SIRS Criteria: 2 or more of the following may indicate SIRS Temperature < 96.8F (36C) or > 101.0F (38.3C) Heart Rate > 90 bpm Respiratory Rate > 20 breaths/min or PaCO2 < 32 mmHg White Blood Cell Count > 12,000 or < 4,000 cells/mm3 or > 10% bands (Template Last Reviewed: May 2022) MTDD
--- NOTE | 2023-12-24 15:31 | P.PN ---
Subjective Progress Note Date: 12/24/23 Principal diagnosis: Reason for follow-up is left gluteal fluid collection hematoma/abscess Patient is a 48-year-old male with a past medical history significant for hypertension hyperlipidemia patient presenting to the hospital concerning for left gluteal area pain apparently the patient has injected hGH in the left gluteal area before his symptoms started. Did have a ultrasound which shows complex mass likely representing hematoma. Patient is s/p surgical drainage of the left gluteal abscess 9x9 cm procedure completed on 12/23/2023 On today's visit that is 12/24/2023, Patient is afebrile patient is currently on room air and denies having any shortness of breath, the patient denies any chest pain or cough, the patient denies any nausea vomiting did not have any abdominal pain and no diarrhea, patient pain to the left gluteal area has decreased in intensity. Patient white count 17.3, creatinine 1.08 cultures currently pending Objective - Vital Signs Vital signs: Vital Signs Temp 98 F 12/24/23 08:50 Pulse 91 12/24/23 12:05 Resp 18 12/24/23 12:05 BP 139/89 12/24/23 12:05 Pulse Ox 98 12/24/23 12:05 FiO2 Intake & Output 12/23/23 12/24/23 12/24/23 18:59 06:59 18:59 Intake Total 118 1000 750 Output Total 10 Balance 118 990 750 Weight 92.5 kg 94.1 kg Intake: IV 1000 Oral 118 750 Output: Estimated Blood Loss 10 Other: Voiding Method Toilet Toilet Toilet Urinal Urinal Urinal # Voids 1 3 1 - Exam GENERAL DESCRIPTION: Middle-age male lying in bed in no distress RESPIRATORY SYSTEM: Unlabored breathing , decreased breath sounds at bases HEART: S1 S2 regular rate and rhythm , ABDOMEN: Soft , no tenderness, left gluteal surgical wound is currently dressed EXTREMITIES: No edema feet - Labs CBC & Chem 7: 12/24/23 06:03 12/24/23 06:03 Labs: Abnormal Lab Results - Last 24 Hours (Table) 12/23/23 12/24/23 12/24/23 Range/Units 16:32 00:10 06:02 WBC (3.8-10.6) k/uL RBC (4.30-5.90) m/uL Sodium (137-145) mmol/L BUN (9-20) mg/dL Glucose (74-99) mg/dL POC Glucose (mg/dL) 119 H 281 H 161 H (70-110) mg/dL AST (17-59) U/L ALT (4-49) U/L Total Protein (6.3-8.2) g/dL Albumin (3.5-5.0) g/dL 12/24/23 12/24/23 Range/Units 06:03 06:03 WBC 17.3 H (3.8-10.6) k/uL RBC 4.18 L (4.30-5.90) m/uL Sodium 131 L (137-145) mmol/L BUN 28 H (9-20) mg/dL Glucose 162 H (74-99) mg/dL POC Glucose (mg/dL) (70-110) mg/dL AST 65 H (17-59) U/L ALT 79 H (4-49) U/L Total Protein 5.1 L (6.3-8.2) g/dL Albumin 2.9 L (3.5-5.0) g/dL Microbiology - Last 24 Hours (Table) 12/23/23 19:30 Gram Stain - Preliminary Buttock 12/21/23 14:10 Blood Culture - Preliminary Blood 12/21/23 13:59 Blood Culture - Preliminary Blood 12/22/23 16:35 Gram Stain - Preliminary Buttock Wound Culture - Preliminary Assessment and Plan (1) Abscess, gluteal, left Current Visit: Yes Status: Acute Code(s): L02.31 - CUTANEOUS ABSCESS OF B [facility] SNOMED Code(s): 63831311 (2) Abscess Current Visit: Yes Status: Acute Code(s): L02.91 - CUTANEOUS ABSCESS, UNSPECIFIED SNOMED Code(s): 672667696 Plan: 1patient with the hospital with left gluteal pain and swelling in this patient who did have features of SIRS/sepsis with tachycardia and elevated white count s ource likely left gluteal area abscess versus hematoma in this patient symptoms started after he did injection to the area 2-patient is s/p surgical drainage of the abscess and culture has been obtained which are currently pending 3-patient to continue with vancomycin pharmacy to dose and Unasyn while waiting for the culture to finalize to determine discharge antibiotics Dictation was produced using [employer] dictation software. please excuse any grammatical, word or spelling errors. Time with Patient: Less than 30
[2023-12-24 16:04] LABS: Glucose,Whole Blood 127 mg/dL (70-110)
[2023-12-24] MEDS: VANCOMYCIN TROUGH DUE 1 EACH MISC MISCELLANE ONE (19:48)
[2023-12-24 20:16] LABS: Glucose,Whole Blood 129 mg/dL (70-110)
[2023-12-24] MEDS: FAMOTIDINE 20 MG TAB PO SCH (21:30)
[2023-12-25 00:10] VITALS: TEMP 98.1
[2023-12-25] MEDS: VANCOMYCIN 1,750 MG in SODIUM CHLORIDE 0.9% 500 ML 500 ML IVPB SCH (02:27)
[2023-12-25 02:38] LABS: Glucose,Whole Blood 110 mg/dL (70-110)
--- NOTE | 2023-12-25 05:21 | P.PN ---
Subjective Progress Note Date: 12/24/23 HISTORY OF PRESENT ILLNESS: 48-year-old with active medical history of hypertension, testosterone deficiency, depression, hyperlipidemia, prediabetic, who was admitted to the hospital on 12/22/2023 because of recurrent abdominal pain for 2 to 3 days with left buttocks pain and discomfort found to have an open area draining of the left hip site ultrasound showed complex cyst of 6.1 cm is not having any hip pain able to ambulate and walk. Found to have white blood cell of 19,900 left shifted also found to be in acute kidney injury with potassium of 6.1 at the time blood sugar was close to 300 up till his admission he was not in any diabetic medication management. Culture was 1 patient seen Ortho diagnosed with left lateral buttocks abscess recommend aggressive treatment and management with IV antibiotics was started on vancomycin waiting for general surgery to drain apparently had several attempts of I&D at the bedside not successful scheduled for surgical drain apparently will be taken to the OR to do. Culture was done results still pending at this point he was initially started on clindamycin but switched to vancomycin and Unasyn per infectious disease recommendation we will continue current antibiotic till the final culture is done patient hopefully will have I&D by general surgery. Was started initially on Levemir 25 units at bedtime along with NovoLog 8 units AC meals plus sliding scales blood sugar still high will continue probably higher titrate medication, patient would benefit eventually from metformin and probably SGLT2 product to help meds after the abscess is drained taking care of. 12/24/2023: Handout going for surgical drainage by general surgery at the OR abscess was 9.9 cm incision and drainage complex intramuscular with mechanical debridement the patient was continued on IV antibiotics still following recommendation of infectious disease for left gluteal pain and swelling with abscess who did have features of SIRS/sepsis with tachycardia elevated white blood cell and abscess finding, local culture still pending at this point remain on vancomycin and Unasyn waiting for the final culture if we have any conclusion with culture patient might still be able to be discharged otherwise with the I@D Blood sugar has improved some of the numbers are down to 100 patient seen fuel cell technician switch off all D5 in the meanwhile remain on Levemir 25 units a day along with NovoLog 8 units AC meals and reduce Farxiga 10 mg a day yesterday and continue secondary prevention being on atorvastatin will eventually smaller dose of ARB. From yesterday waiting for the culture done during surgery which will be tomorrow. More sensitive. REVIEW OF SYSTEMS: CONSTITUTIONAL: Well-developed no acute respiratory distress. EYES: No icterus sclerae, no conjunctivitis. EARS, NOSE, MOUTH, THROAT, and FACE: No sore throat, lymphadenopathy, carotid bruits or deformity. RESPIRATORY: No SOB cough or wheezes. CARDIOVASCULAR: No CP, Palpitation, PND, Orthopnea, or angina. GASTROINTESTINAL: Slight abdominal discomfort with nausea no vomiting diarrhea or constipation. GENITOURINARY: Polyuria and nocturia and multiple frequency. INTEGUMENT/BREAST: Negative for any muscular injury with mild osteoarthritis.. HEMATOLOGIC/LYMPHATIC: Negative for bleed or purpura. MUSCULOSKELTAL: Mild arthralgia and myalgia with slight pain discomfort and drainage from the left buttocks area. NEURLOGICAL: No LOC, Sz or syncope, blurred vision dizziness or abnormality.. BEHAVIORAL/PSYCH: Negative. ENDOCRINE: Negative. PHYSICAL EXAMINATION: General Appearance: Alert, cooperative, no distress, appears stated age. Neck HEENT: Supple, no lymphadenopathy, no thyroid enlargement, no carotid bruits. Lungs: Clear to auscultation without crackles or wheezes no rhonchi, no deformi ty. Chest Wall: Chest wall normal expansion with deep inspiration no tenderness and no deformity was found on exam, no costochondral pain or discomfort. Heart: Regular rate and rhythm, S1, S2 normal, no murmur, rub or gallop. Back: Symmetric, no curvature, ROM normal, no CVA tenderness. Abdomen: Soft positive bowel sounds slight discomfort in the epigastric and left lower quadrant area no rebound or rigidity no masses. Extremities: Still have full range of motion lateral side of the left buttocks area still have slightly drainage at the time with mild fluctuation and discomfort lymph node in the groin area still borderline with mildly large. Pulses: 2+ and symmetric. Skin: Skin color, texture, tugor normal, no rashes or lesions. Neurologic: Alert oriented x3 cranial nerves II through XII intact, no motor deficit, no abnormal balance or gait. ASSESSMENT AND PLAN: _Sepsis with SIRS: Large abscess, tachycardia, elevated white blood cell, has done much better so far on IV antibiotic continue Unasyn and vancomycin for now the patient has been having I@D yesterday with general surgery waiting for final culture vaginal area was close to 9 x 9 cm. _Acute large abscess on the left gluteal with with recurrent cellulitis in the surrounding area, continue on Unasyn and vancomycin till the final culture is back after the drain was done yesterday. _New onset of diabetes most likely type II blood sugar still fluctuating slightly but continue Farxiga along with Levemir 25-minute at bedtime with NovoLog 8 unit AC meals plus sliding scales titrate medication gradually and probably try to add metformin when ready. _Acute kidney injury: On admission creatinine was 1.42 with GFR of 59 potassium 6.1 nephrology consultation on board continue gentle hydration repeat CMP this morning. _Acute hyperkalemia: Likely etiology at this point was initiated on Lokelma 5 mg 3 times daily and stopped eventually with the potassium down still on sodium bicarbonate he was on lisinopril 20 mg daily was stopped completely as it said close NIKKI inhibitor causing hyperkalemia can be aggravated with abscess. Potassium is pending this morning. _Hypertension: Was on lisinopril prior to admission off lisinopril for now can use calcium channel fran to keep systolic blood pressure below 130. _Hyperlipidemia was on rosuvastatin 10 mg a day was switched to atorvastatin per hospital policy. _Severe pain from acute abscess and swelling will continue Dilaudid and switch t o hydrocodone orally. _Testosterone deficiency: Has been on testosterone injection every 21 days which will be held for now resume after his improvement. _Asthma: Continue Wixela and Ventolin. Discussion: Patient end up going for surgical intervention for draining the abscess yesterday, waiting for the final culture if we have the final result by the end of the day patient can be discharged otherwise probably required for tomorrow continue IV antibiotics continue dressing. Objective - Vital Signs Vital signs: Vital Signs Temp 98.4 F 12/23/23 20:00 Pulse 71 12/24/23 04:00 Resp 18 12/24/23 04:00 BP 133/76 12/24/23 04:00 Pulse Ox 97 12/24/23 04:00 FiO2 Intake & Output 12/23/23 12/23/23 12/24/23 06:59 18:59 06:59 Intake Total 118 1000 Output Total 10 Balance 118 990 Weight 92.5 kg 92.5 kg 94.1 kg Intake: IV 1000 Oral 118 Output: Estimated Blood Loss 10 Other: Voiding Method Toilet Toilet Toilet Urinal Urinal Urinal # Voids 1 - Labs CBC & Chem 7: 12/23/23 06:56 12/23/23 06:56 Labs: Abnormal Lab Results - Last 24 Hours (Table) 12/23/23 12/23/23 12/23/23 Range/Units 06:08 06:56 06:56 WBC 16.4 H (3.8-10.6) k/uL Neutrophils # (Manual) 13.20 H (1.3-7.7) k/uL Monocytes # (Manual) 1.31 H (0-1.0) k/uL Sodium 129 L (137-145) mmol/L Chloride 96 L (98-107) mmol/L BUN 23 H (9-20) mg/dL Glucose 237 H (74-99) mg/dL POC Glucose (mg/dL) 222 H (70-110) mg/dL Urine Glucose (UA) (Negative) 12/23/23 12/23/23 12/23/23 Range/Units 11:27 14:30 16:32 WBC (3.8-10.6) k/uL Neutrophils # (Manual) (1.3-7.7) k/uL Monocytes # (Manual) (0-1.0) k/uL Sodium (137-145) mmol/L Chloride (98-107) mmol/L BUN (9-20) mg/dL Glucose (74-99) mg/dL POC Glucose (mg/dL) 145 H 119 H (70-110) mg/dL Urine Glucose (UA) 4+ H (Negative) 12/24/23 Range/Units 00:10 WBC (3.8-10.6) k/uL Neutrophils # (Manual) (1.3-7.7) k/uL Monocytes # (Manual) (0-1.0) k/uL Sodium (137-145) mmol/L Chloride (98-107) mmol/L BUN (9-20) mg/dL Glucose (74-99) mg/dL POC Glucose (mg/dL) 281 H (70-110) mg/dL Urine Glucose (UA) (Negative) Microbiology - Last 24 Hours (Table) 12/21/23 14:10 Blood Culture - Preliminary Blood 12/21/23 13:59 Blood Culture - Preliminary Blood 12/22/23 16:35 Gram Stain - Preliminary Buttock Wound Culture - Preliminary
[2023-12-25 06:18] LABS: Glucose,Whole Blood 113 mg/dL (70-110)
[2023-12-25 07:05] LABS: Glucose,Whole Blood 138 mg/dL (70-110)
[2023-12-25 07:41] LABS: HCT 44.2 % (39.0-53.0); HGB 13.9 gm/dL (13.0-17.5); MCH 30.4 pg (25.0-35.0); MCHC 31.4 g/dL (31.0-37.0); MCV 96.9 fL (80.0-100.0); Mean Platelet Volume 8.9; Platelet Count 363 k/uL (150-450); RBC 4.56 m/uL (4.30-5.90); RDW 14.5 % (11.5-15.5); WBC 17.7 k/uL (3.8-10.6)
[2023-12-25] MEDS: INSULIN DETEMIR (LEVEMIR) 100 UNIT/ML SYR SQ SCH (07:51)
[2023-12-25 07:54] LABS: ALT 119 U/L (4-49); AST 95 U/L (17-59); African American GFR (CKD) >90 (>60 ml/min/1.73 sqM); Albumin 3.2 g/dL (3.5-5.0); Alkaline Phosphatase 59 U/L (38-126); Anion Gap 3 mmol/L; Blood Urea Nitrogen 21 mg/dL (9-20); Calcium 9.2 mg/dL (8.4-10.2); Carbon Dioxide 25 mmol/L (22-30); Chloride 100 mmol/L (98-107); Glucose 107 mg/dL (74-99); Non-African American GFR(CKD) 90 (>60 ml/min/1.73 sqM); Potassium 4.8 mmol/L (3.5-5.1); Sodium 128 mmol/L (137-145); Total Bilirubin 0.5 mg/dL (0.2-1.3); Total Protein 5.5 g/dL (6.3-8.2)
[2023-12-25] MEDS: lisinopriL 20 MG TAB PO SCH (08:10)
[2023-12-25 08:26] VITALS: RESP 16
[2023-12-25 11:38] VITALS: BP 162/91; PULSE 85
[2023-12-25 11:43] LABS: Glucose,Whole Blood 97 mg/dL (70-110)
--- NOTE | 2023-12-25 11:54 | P.PN ---
Subjective patient is seen for follow-up for acute kidney injury and hyponatremia. Currently maintained on normal saline with improvement in renal function and serum sodium levels. status post I&D of left intramuscular infected hematoma on 12/23/2023 No significant new complaints today. Serum creatinine is down to 1.0 from 1.56 on admission. Good urine output noted. serum sodium dropped to 128 today. There are plans for discharge. IV fluids will be discontinued. 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 grossly intact - Labs CBC & Chem 7: 12/25/23 07:15 12/25/23 07:15 Labs: Abnormal Lab Results - Last 24 Hours (Table) 12/24/23 12/24/23 12/25/23 Range/Units 16:02 20:12 06:15 WBC (3.8-10.6) k/uL Sodium (137-145) mmol/L BUN (9-20) mg/dL Glucose (74-99) mg/dL POC Glucose (mg/dL) 127 H 129 H 113 H (70-110) mg/dL AST (17-59) U/L ALT (4-49) U/L Total Protein (6.3-8.2) g/dL Albumin (3.5-5.0) g/dL 12/25/23 12/25/23 12/25/23 Range/Units 06:56 07:15 07:15 WBC 17.7 H (3.8-10.6) k/uL Sodium 128 L (137-145) mmol/L BUN 21 H (9-20) mg/dL Glucose 107 H (74-99) mg/dL POC Glucose (mg/dL) 138 H (70-110) mg/dL AST 95 H (17-59) U/L ALT 119 H (4-49) U/L Total Protein 5.5 L (6.3-8.2) g/dL Albumin 3.2 L (3.5-5.0) g/dL Microbiology - Last 24 Hours (Table) 12/21/23 14:10 Blood Culture - Preliminary Blood 12/21/23 13:59 Blood Culture - Preliminary Blood 12/23/23 19:30 Gram Stain - Preliminary Buttock Wound Culture - Preliminary 12/22/23 16:35 Gram Stain - Preliminary Buttock Wound Culture - Preliminary Assessment and Plan Assessment: 1. Acute kidney injury, mostly prerenal and improving with IV hydration. Serum creatinine may also be falsely elevated from use of Bactrim. NSAIDs discontinued. UA has been ordered and ultrasound of the kidneys is unremarkable for obstructive uropathy. 2. Hyperkalemia associated with acute kidney injury, NSAIDs, hyperglycemia and use of Bactrim. 3. Hyponatremia, patient appears hypovolemic. improving with normal saline. sodium dropped again with continued saline. IV fluids will be discontinued. 4. Hypertension, uncontrolled, maintained on lisinopril at home. Most likely exacerbated with use of NSAIDs. Lisinopril will be held for now and I will add Coreg. 5. Left buttock abscess maintained on clindamycin 6. Polyuria and polydipsia secondary to diabetes, new onset Plan: ddiscontinue IV fluids Repeat labs in 1-2 days post discharge.
--- NOTE | 2023-12-25 12:19 | P.PN ---
Subjective Progress Note Date: 12/25/23 Principal diagnosis: Reason for follow-up is left gluteal fluid collection hematoma/abscess Patient is a 48-year-old male with a past medical history significant for hypertension hyperlipidemia patient presenting to the hospital concerning for left gluteal area pain apparently the patient has injected hGH in the left gluteal area before his symptoms started. Did have a ultrasound which shows complex mass likely representing hematoma. Patient is s/p surgical drainage of the left gluteal abscess 9x9 cm procedure completed on 12/23/2023 On today's visit that is 12/25/2023, patient has been afebrile, patient is breathing comfortably and is currently on room air, patient denies having any significant cough no chest pain shortness of breath, patient denies nausea v omiting or diarrhea and no abdominal pain and denies pain to the left gluteal area. Patient white count is 17.7, creatinine is 1.0 culture has been negative so far Objective - Vital Signs Vital signs: Vital Signs Temp 98.1 F 12/25/23 07:45 Pulse 81 12/25/23 07:45 Resp 16 12/25/23 07:45 BP 163/90 12/25/23 07:45 Pulse Ox 95 12/25/23 07:45 FiO2 Intake & Output 12/24/23 12/25/23 12/25/23 18:59 06:59 18:59 Intake Total 1100 Balance 1100 Weight 92.9 kg Intake: Oral 1100 Other: Voiding Method Toilet Toilet Toilet Urinal Urinal # Voids 1 1 - Exam GENERAL DESCRIPTION: Middle-age male lying in bed in no distress RESPIRATORY SYSTEM: Unlabored breathing , decreased breath sounds at bases HEART: S1 S2 regular rate and rhythm , ABDOMEN: Soft , no tenderness, left gluteal incisions intact no induration no redness minimal drainage on the dressing EXTREMITIES: No edema feet - Labs CBC & Chem 7: 12/25/23 07:15 12/25/23 07:15 Labs: Abnormal Lab Results - Last 24 Hours (Table) 12/24/23 12/24/23 12/25/23 Range/Units 16:02 20:12 06:15 WBC (3.8-10.6) k/uL Sodium (137-145) mmol/L BUN (9-20) mg/dL Glucose (74-99) mg/dL POC Glucose (mg/dL) 127 H 129 H 113 H (70-110) mg/dL AST (17-59) U/L ALT (4-49) U/L Total Protein (6.3-8.2) g/dL Albumin (3.5-5.0) g/dL 12/25/23 12/25/23 12/25/23 Range/Units 06:56 07:15 07:15 WBC 17.7 H (3.8-10.6) k/uL Sodium 128 L (137-145) mmol/L BUN 21 H (9-20) mg/dL Glucose 107 H (74-99) mg/dL POC Glucose (mg/dL) 138 H (70-110) mg/dL AST 95 H (17-59) U/L ALT 119 H (4-49) U/L Total Protein 5.5 L (6.3-8.2) g/dL Albumin 3.2 L (3.5-5.0) g/dL Microbiology - Last 24 Hours (Table) 12/21/23 14:10 Blood Culture - Preliminary Blood 12/21/23 13:59 Blood Culture - Preliminary Blood 12/23/23 19:30 Gram Stain - Preliminary Buttock Wound Culture - Preliminary 12/22/23 16:35 Gram Stain - Preliminary Buttock Wound Culture - Preliminary Assessment and Plan (1) Abscess, gluteal, left Current Visit: Yes Status: Acute Code(s): L02.31 - CUTANEOUS ABSCESS OF BUTTOCK SNOMED Code(s): 29388307 (2) Abscess Current Visit: Yes Status: Acute Code(s): L02.91 - CUTANEOUS ABSCESS, UNSPECIFIED SNOMED Code(s): 446601097 Plan: 1patient with the hospital with left gluteal pain and swelling in this patient who did have features of SIRS/sepsis with tachycardia and elevated white count source likely left gluteal area abscess versus hematoma in this patient symptoms started after he did injection to the area 2-patient is s/p surgical drainage of the abscess and culture has been obtained which are currently pending 3-patient seem to have shown clinical improvement culture has been negative so far more likely not dealing with MRSA or resistant pathogen as the patient insisting on going home we will send a prescription for oral Augmentin however will need to monitor his culture closely and adjust antibiotic in outpatient setting if needed has been advised to follow-up in the office next week Dictation was produced using [employer] dictation software. please excuse any grammatical, word or spelling errors. Time with Patient: Less than 30
--- NOTE | 2023-12-25 15:03 | P.PN ---
Subjective Progress Note Date: 12/25/23 CHIEF COMPLAINT: Left buttock abscess HISTORY OF PRESENT ILLNESS: Patient postop day #2 status post incision and drainage of complex intramuscular infected left buttock hematoma. Patient has Pancho drain in place. Patient reports he is feeling better. He has no pain. He has been up and ambulating. He is still having some drainage. Afebrile. WBC remains elevated at 17.7 Hgb 13.9 platelets 363 sodium is 128 LFTs are elevated AST 95 and ALT 119. Glucose 107 PHYSICAL EXAM: VITAL SIGNS: Reviewed GENERAL: Well-developed in no acute distress. HEENT: No sclera icterus. Extraocular movements grossly intact. Moist buccal mucosa. Head is atraumatic, normocephalic. Hears conversational speech. No nasal drainage. NECK: Supple without lymphadenopathy. CHEST: Non-labored respirations and equal bilateral excursions. CARDIOVASCULAR: Palpable 2+ radial pulses. ABDOMEN: Soft. Nondistended. Nontender. MUSCULOSKELETAL: No clubbing or cyanosis. NEUROLOGIC: No focal or lateralizing signs. Cranial nerves II through XII grossly intact. PSYCH: Appropriate affect. Alert and oriented to person, place and time. SKIN: Left buttock skin is clean sutures are in place [place] drain draining s erosanguineous drainage noted on dressing. ASSESSMENT: 1. Sepsis due to complicated left buttock abscess with cellulitis, 9 x 9 cm 2. Newly diagnosed diabetes type 2, poorly controlled with hyperglycemia 3. Hypertensive heart disease 4. Hyperlipidemia 5. Depressive disorder 6. Asthma 7. Hypotestosteronism 8. Generalized anxiety disorder 9. Hyponatremia due to hyperglycemia 10. Hyperglycosuria 11. Acute kidney injury 12. Hyperkalemia 13. Complicated intramuscular left buttock infected hematoma 9 x 9 cm 14. Failed outpatient antibiotic management PLAN: -Discharge is not recommended from surgical standpoint at this time due to persistent elevated white count, elevated LFTs and persistent low sodium -Primary service was notified that surgical service recommends to hold discharge today -Antibiotics per infectious disease -Recommend good blood sugar control -Continue local wound care -Continue protein supplement to help facilitate wound healing -Patient can shower Physician Fire Controlman note has been reviewed by physician. Signing provider agrees with the documented findings, assessment, and plan of care. Objective - Vital Signs Vital signs: Vital Signs Temp 98.1 F 12/25/23 07:45 Pulse 85 12/25/23 11:37 Resp 16 12/25/23 11:37 BP 162/91 12/25/23 11:37 Pulse Ox 98 12/25/23 11:37 FiO2 Intake & Output 12/24/23 12/25/23 12/25/23 18:59 06:59 18:59 Intake Total 1100 220 Balance 1100 220 Weight 92.9 kg Intake: Oral 1100 220 Other: Voiding Method Toilet Toilet Toilet Urinal Urinal # Voids 1 1 - Labs CBC & Chem 7: 12/25/23 07:15 12/25/23 07:15 Labs: Abnormal Lab Results - Last 24 Hours (Table) 12/24/23 12/24/23 12/25/23 Range/Units 16:02 20:12 06:15 WBC (3.8-10.6) k/uL Sodium (137-145) mmol/L BUN (9-20) mg/dL Glucose (74-99) mg/dL POC Glucose (mg/dL) 127 H 129 H 113 H (70-110) mg/dL AST (17-59) U/L ALT (4-49) U/L Total Protein (6.3-8.2) g/dL Albumin (3.5-5.0) g/dL 12/25/23 12/25/23 12/25/23 Range/Units 06:56 07:15 07:15 WBC 17.7 H (3.8-10.6) k/uL Sodium 128 L (137-145) mmol/L BUN 21 H (9-20) mg/dL Glucose 107 H (74-99) mg/dL POC Glucose (mg/dL) 138 H (70-110) mg/dL AST 95 H (17-59) U/L ALT 119 H (4-49) U/L Total Protein 5.5 L (6.3-8.2) g/dL Albumin 3.2 L (3.5-5.0) g/dL Microbiology - Last 24 Hours (Table) 12/21/23 14:10 Blood Culture - Preliminary Blood 12/21/23 13:59 Blood Culture - Preliminary Blood 12/23/23 19:30 Gram Stain - Preliminary Buttock Wound Culture - Preliminary 12/22/23 16:35 Gram Stain - Preliminary Buttock Wound Culture - Preliminary
--- NOTE | 2023-12-29 19:26 | P.DS ---
Providers Date of admission: 12/21/23 12:50 Attending physician: Prince Mukherjee Consults: 12/22/23 09:49 Consult Physician Routine Consulting Provider: Bernadine Kong Consult Reason/Comments: clare, hyperkalemia Do you want consulting provider notified?: Yes 12/22/23 12:09 Consult Physician Routine Consulting Provider: Gladis Gracia Consult Reason/Comments: buttock abscess Do you want consulting provider notified?: Yes 12/23/23 07:43 Consult Physician Routine Consulting Provider: Mirian Brody Consult Reason/Comments: gluteal abcess Do you want consulting provider notified?: Already Contacted Primary care physician: [facility] Course: HISTORY OF PRESENT ILLNESS: 48-year-old with active medical history of hypertension, testosterone deficiency, depression, hyperlipidemia, prediabetic, who was admitted to the hospital on 12/22/2023 because of recurrent abdominal pain for 2 to 3 days with left buttocks pain and discomfort found to have an open area draining of the left hip site ultrasound showed complex cyst of 6.1 cm is not having any hip pain able to ambulate and walk. Found to have white blood cell of 19,900 left shifted also found to be in acute kidney injury with potassium of 6.1 at the time blood sugar was close to 300 up till his admission he was not in any diabetic medication management. Culture was 1 patient seen Ortho diagnosed with left lateral buttocks abscess recommend aggressive treatment and management with IV antibiotics was started on vancomycin waiting for general surgery to drain apparently had several attempts of I&D at the bedside not successful scheduled for surgical drain apparently will be taken to the OR to do. Culture was done results still pending at this point he was initially started on clindamycin but switched to vancomycin and Unasyn per infectious disease recommendation we will continue current antibiotic till the final culture is done patient hopefully will have I&D by general surgery. Was started initially on Levemir 25 units at bedtime along with NovoLog 8 units AC meals plus sliding scales blood sugar still high will continue probably higher titrate medication, patient would benefit eventually from metformin and probably SGLT2 product to help meds after the abscess is drained taking care of. 12/24/2023: Handout going for surgical drainage by general surgery at the OR abscess was 9.9 cm incision and drainage complex intramuscular with mechanical debridement the patient was continued on IV antibiotics still following recommendation of infectious disease for left gluteal pain and swelling with abscess who did have features of SIRS/sepsis with tachycardia elevated white blood cell and abscess finding, local culture still pending at this point remain on vancomycin and Unasyn waiting for the final culture if we have any conclusion with culture patient might still be able to be discharged otherwise with the I@D Blood sugar has improved some of the numbers are down to 100 patient seen health promotion educator switch off all D5 in the meanwhile remain on Levemir 25 units a day along with NovoLog 8 units AC meals and reduce Farxiga 10 mg a day yesterday and continue secondary prevention being on atorvastatin will eventually smaller dose of ARB. From yesterday waiting for the culture done during surgery which will be tomorrow. More sensitive. 12/25/2023: Patient has done well medically last 48 hours his white blood cell was mild elevated culture Remain negative and infectious disease recommendation is to send patient home on Augmentin 875 mg twice a day for total of 10 days to follow-up with culture as an outpatient original plan was possibly to do Bactrim DS. Currently with the controversy of general surgery are against the idea of discharge there is no medical indication of any sepsis or infection or any reason to delay patient discharge at this point specially that patient had total of 4 days on IV antibiotics and had a drain remain on the site had a surgical intervention on the patient is very stable medically with no indication for any further infection require any further IV antibiotics management. Will discharge patient home today to follow-up as an outpatient in the next 48 hours. As for his newly onset of type 2 diabetes which patient was kept on metformin along with Farxiga and initiate Lantus 20 units a day and teaching patient how to give himself insulin he will be seen in the office next 24 hours for continued glucose monitor and further diabetic education. REVIEW OF SYSTEMS: CONSTITUTIONAL: Well-developed no acute respiratory distress. EYES: No icterus sclerae, no conjunctivitis. EARS, NOSE, MOUTH, THROAT, and FACE: No sore throat, lymphadenopathy, carotid bruits or deformity. RESPIRATORY: No SOB cough or wheezes. CARDIOVASCULAR: No CP, Palpitation, PND, Orthopnea, or angina. GASTROINTESTINAL: Slight abdominal discomfort with nausea no vomiting diarrhea or constipation. GENITOURINARY: Polyuria and nocturia and multiple frequency. INTEGUMENT/BREAST: Negative for any muscular injury with mild osteoarthritis.. HEMATOLOGIC/LYMPHATIC: Negative for bleed or purpura. MUSCULOSKELTAL: Mild arthralgia and myalgia with slight pain discomfort and drainage from the left buttocks area. NEURLOGICAL: No LOC, Sz or syncope, blurred vision dizziness or abnormality.. BEHAVIORAL/PSYCH: Negative. ENDOCRINE: Negative. PHYSICAL EXAMINATION: General Appearance: Alert, cooperative, no distress, appears stated age. Neck HEENT: Supple, no lymphadenopathy, no thyroid enlargement, no carotid bruits. Lungs: Clear to auscultation without crackles or wheezes no rhonchi, no deformity. Chest Wall: Chest wall normal expansion with deep inspiration no tenderness and no deformity was found on exam, no costochondral pain or discomfort. Heart: Regular rate and rhythm, S1, S2 normal, no murmur, rub or gallop. Back: Symmetric, no curvature, ROM normal, no CVA tenderness. Abdomen: Soft positive bowel sounds slight discomfort in the epigastric and left lower quadrant area no rebound or rigidity no masses. Extremities: Still have full range of motion lateral side of the left buttocks area still have slightly drainage at the time with mild fluctuation and discomfort lymph node in the groin area still borderline with mildly large. Pulses: 2+ and symmetric. Skin: Skin color, texture, tugor normal, no rashes or lesions. Neurologic: Alert oriented x3 cranial nerves II through XII intact, no motor deficit, no abnormal balance or gait. ASSESSMENT AND PLAN: _Sepsis with SIRS: Was treated with IV antibiotic along with I and D and has done very well patient was switched to oral antibiotic agreed with infectious disease to do Augmentin 875 mg twice a day for total of 10 more days.. _Acute large abscess on the left gluteal with with recurrent cellulitis in the surrounding area, was originally treated with Unasyn and vancomycin and switched to Augmentin as an outpatient. _New onset of diabetes most likely type II blood sugar still fluctuating slightly but continue Farxiga and add metformin 850 mg twice a day along with Lantus 20 units daily continue to be seen in the office in 24 hours for continued glucose monitoring and diabetic education. _Acute kidney injury: With gentle hydration and avoid any nephrotoxic agent Kidney function returned back to normal with creatinine 1.0 GFR 90. _Acute hyperkalemia: Likely etiology at this point was initiated on Lokelma 5 mg 3 times daily and stopped eventually with the potassium down still on sodium bicarbonate he was on lisinopril 20 mg daily was stopped completely as it said close NIKKI inhibitor causing hyperkalemia can be aggravated with abscess. Potassium is pending this morning. _Hypertension: Was on lisinopril prior to admission off lisinopril for now can use calcium channel fran to keep systolic blood pressure below 130. _Hyperlipidemia was on rosuvastatin 10 mg a day was switched to atorvastatin per hospital policy. _Severe pain from acute abscess and swelling will continue Dilaudid and switch to hydrocodone orally. _Testosterone deficiency: Has been on testosterone injection every 21 days which will be held for now resume after his improvement. _Asthma: Continue Wixela and Ventolin. Discussion: Patient had surgical intervention to drain an abscess with culture coming back negative so far, switch to oral antibiotic Augmentin, follow-up in the office next 24 hours the patient medical management successful for his current presentation with sepsis with acute large abscess with new onset of type 2 diabetes acute kidney injury hyperkalemia. Very quick follow-up appointment as an outpatient and to follow health promotion educator very fast. Hospital course: Patient was admitted to the hospital on shock 2023 with recurrent abdominal pain for 2 to 3 days with severe left-sided buttocks pain and discomf ort found to have fluctuation area with abscess at 6.1 cm apparently the site of his testosterone injection become infected at the time of his presentation white blood cell was 19,900 left shifted found to have an acute kidney injury with higher potassium at 6.1 with a blood sugar at 300. In summary he was admitted for sepsis with SIRS from an abscess in the buttocks area along with acute kidney injury, hyperkalemia, and new onset of type 2 diabetes with blood sugar running over 300. Patient was started on Unasyn and vancomycin was seen infectious disease also seen nephrology [facility] was giving to treat his hyperkalemia gentle hydration and improvement on his kidney function. Patient was seen general surgery and they are going for I and D with culture came back negative. Continue Unasyn and vancomycin till his discharge which patient be discharged on the on Augmentin to follow-up with infectious disease and medical within 24 to 48 hours. Aggressive management and is diabetic and all helping in the hospital was done. Patient was stable to be discharged on 12/25/2023. Time spent on patient discharge was over 35 minutes. Patient Condition at Discharge: Serious Plan - Discharge Summary Discharge Rx Participant: No New Discharge Prescriptions: New Amoxic-Pot Clav 875-125Mg [Augmentin 875-125] 1 tab PO BID 10 Days #20 tab Insulin Glargine,Hum.rec.anlog [Lantus Solostar Pen] 20 units SQ DAILY #1 pen Dapagliflozin Propanediol [Farxiga] 10 mg PO DAILY #30 tab metFORMIN HCL [Glucophage] 850 mg PO BID-W/MEALS #60 tab Famotidine [Pepcid] 20 mg PO BID #30 tab Continue Rosuvastatin [Crestor] 10 mg PO DAILY Sulfamethox-Tmp 800-160Mg [Bactrim DS 800-160 mg] 1 tab PO BID Fluticasone Propion/Salmeterol [Wixela 500-50 Inhub] 1 puff INHALATION RT-BID Albuterol Sulfate [Ventolin HFA] 1 - 2 puff INHALATION RT-Q4H PRN PRN Reason: Shortness Of Breath lisinopriL [Prinivil] 20 mg PO DAILY Testosterone Cypionate [Depo-Testosterone] 200 mg IM Q21D Multivitamins, Thera [Multivitamin (formulary)] 1 tab PO DAILY Escitalopram [Lexapro] 20 mg PO DAILY Discharge Medication List Albuterol Sulfate [Ventolin HFA] 1 - 2 puff INHALATION RT-Q4H PRN 12/21/23 [History] Escitalopram [Lexapro] 20 mg PO DAILY 12/21/23 [History] Fluticasone Propion/Salmeterol [Wixela 500-50 Inhub] 1 puff INHALATION RT-BID 12/21/23 [History] Multivitamins, Thera [Multivitamin (formulary)] 1 tab PO DAILY 12/21/23 [History] Rosuvastatin [Crestor] 10 mg PO DAILY 12/21/23 [History] Sulfamethox-Tmp 800-160Mg [Bactrim DS 800-160 mg] 1 tab PO BID 12/21/23 [History] Testosterone Cypionate [Depo-Testosterone] 200 mg IM Q21D 12/21/23 [History] lisinopriL [Prinivil] 20 mg PO DAILY 12/21/23 [History] Amoxic-Pot Clav 875-125Mg [Augmentin 875-125] 1 tab PO BID 10 Days #20 tab 12/25/23 [Rx] Dapagliflozin Propanediol [Farxiga] 10 mg PO DAILY #30 tab 12/25/23 [Rx] Famotidine [Pepcid] 20 mg PO BID #30 tab 12/25/23 [Rx] Insulin Glargine,Hum.rec.anlog [Lantus Solostar Pen] 20 units SQ DAILY #1 pen 12/25/23 [Rx] metFORMIN HCL [Glucophage] 850 mg PO BID-W/MEALS #60 tab 12/25/23 [Rx] Follow up Appointment(s)/Referral(s): Hazel Buckley MD [Primary Care Provider] - 1-2 days (Office not answering at this time; please call [facility] for follow up appointment.) Mirian Brody MD [STAFF PHYSICIAN] - 1 Week (Office will call you with appointment date/time.) Patient Instructions/Handouts: Abscess (ED), Type 2 Diabetes in the Older Adult (DC) Activity/Diet/Wound Care/Special Instructions: Upon discharge go to [facility] and ask for "over the counter diabetic supplies (this should include glucometer, lancets, and test strips)" - cost is $26.86 Discharge Disposition: HOME SELF-CARE
== END 2023-12-25 15:20 | disposition home or self-care (01) | DRG 854 ==
LOC: EC 09:56 → 3SCARD 12:50
PROVIDERS: ADMIT Internal Medicine Geriatric Medicine; ATTEND Internal Medicine Geriatric Medicine
PROC: 0Y913ZZ Drainage of Left Buttock, Percutaneous Approach (ICD-10-PCS; 2023-12-21)
PROC: 0K9P00Z Drainage of Left Hip Muscle with Drainage Device, Open Approach (ICD-10-PCS; principal; 2023-12-23 11:25)
PROC: 0KDP0ZZ Extraction of Left Hip Muscle, Open Approach (ICD-10-PCS; principal; 2023-12-23 11:25)
DX: A41.9 Sepsis, unspecified organism (principal); E87.1 Hypo-osmolality and hyponatremia; L02.31 Cutaneous abscess of buttock; N17.9 Acute kidney failure, unspecified; L03.317 Cellulitis of buttock; E11.65 Type 2 diabetes mellitus with hyperglycemia; E78.5 Hyperlipidemia, unspecified; F32.A Depression, unspecified; J45.909 Unspecified asthma, uncomplicated; S30.0XXA Contusion of lower back and pelvis, initial encounter; I11.9 Hypertensive heart disease without heart failure; F41.1 Generalized anxiety disorder; E87.5 Hyperkalemia; E86.1 Hypovolemia; E86.0 Dehydration; Z79.899 Other long term (current) drug therapy; Z79.890 Hormone replacement therapy; Z28.310 Unvaccinated for COVID-19; Z71.3 Dietary counseling and surveillance
CPT/HCPCS: 10060; 36415; 76770; 80048; 80053; 80202; 81003; 82009; 83036; 83605; 84132; 85025; 85027; 87040; 87070; 87075; 87205; 88304; 96361; 96365; 96375; 99285